=== PATIENT | female | born 1935 | race Caucasian/White ===

== ENCOUNTER 2016-11-23 14:21 | Emergency (ER) | payer OTHER, BC ==
[2016-11-23 14:56] VITALS: BP 112/59; PULSE 74; TEMP 98; BMI 28.3
--- NOTE | 2016-11-23 15:50 | PDOC ---
History of Present Illness - General Chief Complaint: Wound Stated Complaint: Wound Time Seen by Provider: 11/23/16 15:24 History Source: Patient Exam Limitations: No Limitations - History of Present Illness Initial Comments: 11/23/16 16:13 81 yr female with history of wound to her left lower leg for one month after cutting the back of her leg on a car door. Pt went to urgent care was on bactrim for 2 weeks for infection, however pt has some drainage from the wound. Severity: Yes: mild Location: reports: extremities (left posterior leg ) Past History - Past Medical History Allergies/Adverse Reactions: Allergies Allergy/AdvReac Type Severity Reaction Status Date / Time cephalexin monohydrate Allergy Intermediate Swelling Verified 12/03/16 11:06 [From Keflex] Home Medications: Ambulatory Orders Levothyroxine [Synthroid] 25 mcg PO DAILY 03/21/12 Metformin HCl [Glucophage] 500 mg PO DAILY 03/21/12 Metoprolol Tartrate [Lopressor] 50 mg PO BID 03/21/12 Anemia: No Cardiac Disorders: No CHF: No Dementia: No Diabetes: Yes HTN: Yes - Surgical History Cardiac Surgery: Yes ([facility]) - Psycho/Social/Smoking Cessation Hx Anxiety: No Suicidal Ideation: No Smoking Status: No Smoking History: Never smoked Have you smoked in the past 12 months: No Number of Cigarettes Smoked Daily: 0 Information on smoking cessation initiated: No Hx Alcohol Use: No Drug/Substance Use Hx: No Substance Use Type: None *Physical Exam - Vital Signs Last Vital Signs Temp Pulse Resp BP Pulse Ox 98 F 74 19 112/59 98 11/23/16 14:50 11/23/16 14:50 11/23/16 14:50 11/23/16 14:50 11/23/16 14:50 - Physical Exam General Appearance: Yes: Nourished, Appropriately Dressed HEENT: positive: EOMI, BARTOLO Neck: positive: Supple Respiratory/Chest: positive: Lungs Clear, Normal Breath Sounds Cardiovascular: positive: Regular Rhythm, Regular Rate Gastrointestinal/Abdominal: positive: Normal Bowel Sounds, Soft Musculoskeletal: positive: Normal Inspection Extremity: positive: Normal Capillary Refill, Normal Inspection, Normal Range of Motion, Other (left calf with area [id number] wound with scabbing, scant drainage , area surrounding with induration, no redness no streaking ) Integumentary: positive: Normal Color, Dry, Warm Neurologic: positive: Fully Oriented, Alert, Normal Mood/Affect, Normal Response , Motor Strength 5/5 Procedures - Incision and Drainage Betadine cleansed: Yes Volume(ml): 5 Attempts: 1 Dressing: Yes Progress: 11/23/16 18:16 scant amount of blood with sangenous drainage squeezed from the abscess , no active bleeding returned, indurated no pus returned wound culture obtained 11/23/16 20:47 11/23/16 21:05 ED Treatment Course - RADIOLOGY Radiology Studies Ordered: Category Date Time Status DUPLEX VASCUL US-1 LEG [US] Stat Ultrasound 11/23/16 15:37 Ordered - Consult/PCP Time Called: 18:25 Case discussed with personal care physician: Ced Wei Medical Decision Making - Medical Decision Making 11/23/16 18:17 cc: abscess to left lower leg secondary to wound infection will get US to r/o abscess vs blood clot/hematoma pt denies fever no chills 11/23/16 18:20 us reported will refer to general surgery for follow up 11/23/16 19:06 not here back from , I have paged as well no answer pt wants to leave pt will follow with her PMD or with the surgeons tomorrow as discussed, pt understands the follow up plan and strict follow up with surgeon this week OR her primary care 11/23/16 20:45 11/23/16 20:51 returned call case discussed and pt will call her office to follow up as needed. 11/23/16 21:05 *DC/Admit/Observation/Transfer Diagnosis at time of Disposition: Hematoma Leg wound, left Qualifiers: Encounter type: initial encounter Qualified Code(s): S81.802A - Unspecified open wound, left lower leg, initial encounter - Discharge Dispostion Disposition: HOME Condition at time of disposition: Good - Referrals Referrals: Abbey Newman MD [Primary Care Provider] - Ced Wei MD [Staff Physician] - Pj Oviedo MD [Staff Physician] - - Patient Instructions Additional Instructions: follow with either or call them tomorrow to make appointment say you were in the emergency room if you can not see the surgeon you must see your doctor tomorrow or Wednesday keep the wound dry do not remove the dressing take tylenol for pain as needed return to ER for any worsening symptoms
== END 2016-11-23 19:08 | disposition home or self-care (01) ==
LOC: JERFT 14:21
DX: S81.802A Unspecified open wound, left lower leg, initial encounter (principal); L03.116 Cellulitis of left lower limb; V48.4XXA Person boarding or alighting a car injured in noncollision transport accident, initial encounter; Y92.410 Unspecified street and highway as the place of occurrence of the external cause; Y93.89 Activity, other specified; Y99.9 Unspecified external cause status
CPT/HCPCS: 76882; 87070; 87186; 87205; 99281-25

== ENCOUNTER 2016-11-24 13:41 | Emergency (ER) | payer OTHER, BC ==
[2016-11-24 13:50] VITALS: BP 115/59; PULSE 75; BMI 28.3
--- NOTE | 2016-11-24 15:40 | PDOC ---
History of Present Illness - General Chief Complaint: Revisit,Wound Recheck Stated Complaint: DRESSING CHECK Time Seen by Provider: 11/24/16 15:18 - History of Present Illness Initial Comments: 11/24/16 15:35 CHIEF COMPLAINT: wound HISTORY OF PRESENT ILLNESS: 81 yr female returns to fast track for dressing check of wound to left lower leg. Patient has had this wound for one month after an injury to the back of her leg by a car door. Patient received Bactrim for 2 weeks for infection, however patient still was concerned about the drainage to the wound. Patient was referred to outpatient surgery yesterday and told to return for a dressing change today. She denies any pain, fever, chills, nausea, vomiting or worsening of the wound. Patient states she has an appointment with surgeon tomorrow at 1:45pm. PAST MEDICAL HISTORY: Denies past medical history FAMILY HISTORY: Denies SOCIAL HISTORY:Denies tobacco, alcohol, illicit drug use. SURGICAL HISTORY: Denies ALLERGIES: No known drug allergies REVIEW OF SYSTEMS General/Constitutional: Denies fever or chills. Gastrointestinal: Denies nausea, vomiting, diarrhea. Genitourinary: Denies dysuria, frequency, or change in urination. Musculoskeletal: Denies joint or muscle swelling or pain. Skin: "I was told to have the dressing change today on this wound on my leg." PHYSICAL EXAM General Appearance: Well-appearing, appropriately dressed. No apparent distress. HEENT: EOMI, PERRLA. Respiratory/Chest: Lungs CTAB. Cardiovascular: RRR. S1, S2. Vascular Pulses: Dorsalis-Pedis (R): 2+, Dorsalis-Pedis (L): 2+ Musculoskeletal/Extremities: Draining open abscess to left calf. No erythema, warmth, or swelling to wound site. Normal inspection. FROM of all extremities, normal capillary refill. Pelvis Stable. No CVA tenderness. No tenderness to extremities, pedal edema, swelling, erythema or deformity. Integumentary: Appropriate color, dry, warm. 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 Fully oriented, alert. Appropriate mood/affect. Motor strength 5/5. No appreciable EOM palsy, facial droop or sensory deficit. Past History - Past Medical History Allergies/Adverse Reactions: Allergies Allergy/AdvReac Type Severity Reaction Status Date / Time No Known Allergies Allergy Verified 11/24/16 13:51 Home Medications: Ambulatory Orders Amlodipine/Valsartan [Exforge 5-320 mg Tablet] 1 each PO DAILY 03/21/12 Esomeprazole Mag Trihydrate [Nexium] 40 mg PO DAILY PRN 03/21/12 Levothyroxine [Synthroid] 25 mcg PO DAILY 03/21/12 Metformin HCl [Glucophage] 500 mg PO DAILY 03/21/12 Metoprolol Tartrate [Lopressor] 50 mg PO BID 03/21/12 Anemia: No Cardiac Disorders: No CHF: No Dementia: No Diabetes: Yes HTN: Yes - Surgical History Cardiac Surgery: Yes ([facility]) - Psycho/Social/Smoking Cessation Hx Anxiety: No Suicidal Ideation: No Smoking Status: No Smoking History: Never smoked Have you smoked in the past 12 months: No Number of Cigarettes Smoked Daily: 0 Information on smoking cessation initiated: No Hx Alcohol Use: No Drug/Substance Use Hx: No Substance Use Type: None *Physical Exam - Vital Signs Last Vital Signs Temp Pulse Resp BP Pulse Ox 75 18 115/59 98 11/24/16 13:46 11/24/16 13:46 11/24/16 13:46 11/24/16 13:46 Medical Decision Making - Medical Decision Making 11/24/16 15:39 81 yr female returns to fast track for dressing change to wound to left lower leg. -Dressing changed Patient states she will see surgeon tomorrow at 1:45 pm. *DC/Admit/Observation/Transfer Diagnosis at time of Disposition: Dressing change - Discharge Dispostion Disposition: HOME Condition at time of disposition: Stable Admit: No - Patient Instructions Printed Discharge Instructions: DI for Wound Infection Additional Instructions: Please follow up with Dr. Wei as planned tomorrow. If you experience pain swelling, redness, or warmth to the wound, or you develop fever, nausea, vomiting, diarrhea, chills, or any new or worsening symptoms, please return to the ER.
== END 2016-11-24 16:44 | disposition home or self-care (01) ==
LOC: JERFT 13:41
DX: Z48.01 Encounter for change or removal of surgical wound dressing (principal); S81.802D Unspecified open wound, left lower leg, subsequent encounter; V48.4XXD Person boarding or alighting a car injured in noncollision transport accident, subsequent encounter
CPT/HCPCS: 99281-25

== ENCOUNTER 2017-09-28 19:10 | Observation (INO) | payer OTHER, BC ==
--- NOTE | 2017-09-28 19:20 | PDOC ---
Rapid Medical Evaluation Chief Complaint: Chest Pain Time Seen by Provider: 09/28/17 19:17 Medical Evaluation: Allergies Allergy/AdvReac Type Severity Reaction Status Date / Time cephalexin monohydrate Allergy Intermediate Swelling Verified 09/28/17 19:16 [From Keflex] 09/28/17 19:18 Chest pain since yesterday. Currently rates the pain a 4/10, occasionally the pain takes her breath away. Pain started when she stood up. Pain located on the L side Exam:Ambulatory, irregularly irregular rate and rhythm. CTAB Orders: Labs, EKG, CXR Pt. to proceed to main ED for further eval
--- NOTE | 2017-09-28 21:53 | PDOC ---
History of Present Illness - General History Source: Patient Exam Limitations: No Limitations <Catherine Gomez - Last Filed: 09/29/17 00:27> - History of Present Illness Initial Comments: Patient is an 82 F, with PMHx of HTN, NE, CVA, TIA, Paroxysmal a-fib (dx in 2016), on Eliquis (5mg 2x/day) who presents with chest pain since yesterday morning. Patient states that she woke up with chest pain yesterday morning. She describes her pain as left sided, intermittent, rates 3/10, does not radiate. She states it feels like a muscle strain and states that it takes her breath away but doesnt describe it as being short of breath. She denies recent heavy lifting. Denies recent travel. She denies recent dizziness or lightheadedness. PCP: Kayley Newman. 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 Allergies: Keflex Social Hx: lives alone, social EtOH, quit smoking (>30 years ago) <Kathy Garza - Last Filed: 09/29/17 00:55> - General Chief Complaint: Chest Pain Stated Complaint: CHEST PAIN Time Seen by Provider: 09/28/17 19:17 Past History - Past Medical History Anemia: No Cardiac Disorders: Yes (A-Fib, CAD) COPD: No CHF: No Dementia: No Diabetes: Yes HTN: Yes Hypercholesterolemia: Yes Thyroid Disease: Yes - Surgical History Cardiac Surgery: Yes ([facility]) - Suicide/Smoking/Psychosocial Hx Smoking Status: No Smoking History: Never smoked Have you smoked in the past 12 months: No Number of Cigarettes Smoked Daily: 0 Information on smoking cessation initiated: No Hx Alcohol Use: No Drug/Substance Use Hx: No Substance Use Type: None <Catherine Gomez - Last Filed: 09/29/17 00:27> <Kathy Garza - Last Filed: 09/29/17 00:55> - Past Medical History Allergies/Adverse Reactions: Allergies Allergy/AdvReac Type Severity Reaction Status Date / Time cephalexin monohydrate Allergy Intermediate Swelling Verified 09/28/17 19:16 [From Keflex] Home Medications: Ambulatory Orders Levothyroxine [Synthroid] 25 mcg PO DAILY 03/21/12 Metoprolol Tartrate [Lopressor] 50 mg PO HS 03/21/12 metFORMIN HCL [Glucophage] 500 mg PO DAILY 03/21/12 Metoprolol Tartrate 75 mg PO AM 09/28/17 Review of Systems - Review of Systems Comments:: GENERAL/CONSTITUTIONAL: No: fever, chills, weakness, loss of appetite. HEAD, EYES, EARS, NOSE AND THROAT: No: change in vision, ear pain, discharge, sore throat, throat swelling. CARDIOVASCULAR: +chest pain, no lightheadedness, palpitations, syncope RESPIRATORY: No: cough, shortness of breath, wheezing, hemoptysis, stridor. GASTROINTESTINAL: No: nausea, vomiting, abdominal cramping, diarrhea, rectal bleeding, constipation. GENITOURINARY: No: dysuria, hematuria, frequency, urgency, flank pain. MUSCULOSKELETAL: No: back pain, neck pain, joint pain, muscle swelling or pain SKIN: No: lesions, pallor, rash or easy bruising. NEUROLOGIC: No: headache, vertigo, paresthesias, weakness ENDOCRINE: No: unexplained weight gain or loss HEMATOLOGIC/LYMPHATIC: No: anemia, easy bleeding, swelling nodes 09/29/17 00:10 <Kathy Garza - Last Filed: 09/29/17 00:55> *Physical Exam - Vital Signs Last Vital Signs Temp Pulse Resp BP Pulse Ox 98.6 F 93 H 18 148/97 100 09/28/17 19:17 09/28/17 19:17 09/28/17 19:17 09/28/17 19:17 09/28/17 19:17 <Catherine Gomez - Last Filed: 09/29/17 00:27> - Vital Signs Last Vital Signs Temp Pulse Resp BP Pulse Ox 98.6 F 93 H 18 148/97 100 09/28/17 19:17 09/28/17 19:17 09/28/17 19:17 09/28/17 19:17 09/28/17 19:17 - Physical Exam Comments: 09/29/17 00:09 GENERAL: The patient is in no acute distress. HEAD: Normal with no signs of trauma. EYES: PERRLA, EOMI, sclera anicteric, conjunctiva clear. ENT: Ears normal, nares patent, oropharynx clear without exudates. Moist mucous membranes. NECK: Normal range of motion, supple without lymphadenopathy, JVD, or masses. LUNGS: Breath sounds equal, clear to auscultation bilaterally. No wheezes, and no crackles. HEART:Irregularly irregular rate and rhythm, no murmur, rub or gallop. ABDOMEN: Soft, nontender, normoactive bowel sounds. No guarding, no rebound. EXTREMITIES: Normal range of motion, no edema. No clubbing or cyanosis. No erythema, or tenderness. NEUROLOGICAL: Cranial nerves II through XII grossly intact. Normal speech. No focal neurological deficits. MUSCULOSKELETAL: Back nontender to palpation, no CVA tenderness SKIN: Warm, Dry, normal turgor, no rashes or lesions noted. <Kathy Garza - Last Filed: 09/29/17 00:55> ED Treatment Course - LABORATORY CBC & Chemistry Diagram: 09/28/17 22:17 09/28/17 22:17 <Catherine Gomez - Last Filed: 09/29/17 00:27> - LABORATORY CBC & Chemistry Diagram: 09/28/17 22:17 09/28/17 22:17 - ADDITIONAL ORDERS Additional order review: Laboratory Results 09/28/17 09/28/17 09/28/17 22:17 22:17 22:17 PT with INR 17.70 H INR 1.57 H Sodium 140 Potassium 4.5 Chloride 105 Carbon Dioxide 29 Anion Gap 6 L BUN 14 Creatinine 0.8 Creat Clearance w eGFR > 60 Random Glucose 103 Calcium 9.2 Magnesium 2.2 Total Bilirubin 1.2 H AST 24 ALT 20 Alkaline Phosphatase 131 H Creatine Kinase 23 L Troponin I < 0.02 Total Protein 7.1 Albumin 4.2 09/28/17 22:17 RBC 4.01 MCV 94.9 MCHC 32.4 RDW 14.1 MPV 11.3 H Neutrophils % No Result Required. Lymphocytes % No Result Required. <Kathy Garza - Last Filed: 09/29/17 00:55> Medical Decision Making - Medical Decision Making 09/28/17 23:24 Miscarriages and 82-year-old female with a history of hypertension, possible hyperlipidemia, coronary artery disease status post CABG in 2013. She presents emergency department with a complaint of left-sided chest pain. She describes a left sided chest pain as a muscle strain, rates it/10, no radiation. No diaphoresis, no shortness of breath although she does state when she has her chest pain it makes her need to catch her breath. No fever, chills. No recent travel. No lower extremity edema. Patient symptoms began yesterday, when she woke in the morning with this chest pain. She cannot remember any excessive exertion which cause her pain. On examination: Heart is regular rate and rhythm, no murmurs appreciated Lungs are clear to auscultation Normal external edema No abdominal tenderness. No chest wall tenderness to palpation. Patient is well-appearing overall. She is awake, alert, oriented. She answers all questions appropriately. Will do: Labs EKG Chest x-ray EKG: Atrial fibrillation, rate of 84 bpm, left axis deviation, right bundle-branch block, no ST elevation or depression, T waves upright, T wave inversion in lead III, aVF Awaiting chest x-ray. Laboratory Tests 09/28/17 09/28/17 09/28/17 22:17 22:17 22:17 WBC 4.1 Hgb 12.3 Hct 38.0 Plt Count 85 L Neutrophils % (Manual) 43.0 Band Neutrophils % 0.0 Monocytes % (Manual) 20 H Sodium 140 Potassium 4.5 Chloride 105 Carbon Dioxide 29 BUN 14 Creatinine 0.8 Random Glucose 103 Creatine Kinase 23 L Troponin I < 0.02 Patient's EKG demonstrates new onset atrial fibrillation. CHAD2 VASC - 6 (age, female, prior TIA per chart review, HTN) Will admit Clinical Impression: chest pain, initial presentation New onset Afib, initial presentation <Catherine Gomez - Last Filed: 09/29/17 00:27> *DC/Admit/Observation/Transfer - Discharge Dispostion Decision to Admit order: Yes <Catherine Gomez - Last Filed: 09/29/17 00:27> - Attestations Scribe Attestion: 09/29/17 00:12 Documentation prepared by Kathy Garza, acting as medical science liaison for Catherine Gomez MD. <Kathy Garza - Last Filed: 09/29/17 00:55> Diagnosis at time of Disposition: Chest pain Qualifiers: Chest pain type: unspecified Qualified Code(s): R07.9 - Chest pain, unspecified - Discharge Dispostion Disposition: HOME Condition at time of disposition: Stable - Referrals Referrals: Marlena Newman [Primary Care Provider] - - Patient Instructions - Post Discharge Activity
[2017-09-28 22:30] LABS: HEMOGLOBIN 12.3 GM/dL (10.7-15.3); MCH 30.7 pg (25.7-33.7); MCHC 32.4 g/dl (32.0-36.0); MEAN CELL VOLUME 94.9 fl (80-96); MEAN PLT VOLUME 11.3 fl (7.5-11.1); PLATELET COUNT 85 K/MM3 (134-434); RBC 4.01 M/mm3 (3.60-5.2); RDW 14.1 % (11.6-15.6); WHITE BLOOD COUNT 4.1 K/mm3 (4.0-10.0)
[2017-09-28 22:59] LABS: ALBUMIN 4.2 g/dl (3.4-5.0); ALK PHOS 131 U/L (45-117); ANION GAP 6 (8-16); BILIRUBIN,TOTAL 1.2 mg/dL (0.2-1.0); BLOOD UREA NITROGEN 14 mg/dL (7-18); CALCIUM 9.2 mg/dL (8.5-10.1); CHLORIDE 105 mmol/L (98-107); CO2 29 mmol/L (21-32); CREATININE 0.8 mg/dL (0.55-1.02); GLUCOSE,RANDOM 103 mg/dL (74-106); MAGNESIUM 2.2 mg/dL (1.8-2.4); POTASSIUM 4.5 mmol/L (3.5-5.1); SGOT/AST 24 U/L (15-37); SGPT/ALT 20 U/L (12-78); SODIUM 140 mmol/L (136-145); TOT PROT 7.1 g/dl (6.4-8.2)
[2017-09-28 23:10] LABS: PLATELET ESTIMATE DECREASED
[2017-09-28 23:37] LABS: INR 1.57 (0.82-1.09); PROTHROMBIN TIME (PATIENT) 17.7 SEC (9.7-13.0)
--- NOTE | 2017-09-29 00:16 | HP ---
CHIEF COMPLAINT: chest pain Automatic Packer Operator: Dr. Suarez PCP: Billie dAen HISTORY OF PRESENT ILLNESS: 82 yr old woman with HTN, pre-diabetes, CAD, hx of UTI's presents with left sided chest pain since morning on 09/28, intermittent nonpositional nonradiating lasting few seconds, no alleviating/exacerbating factors, 3/10 feels like an "annoying pain." spoke to her it risk analyst who recommended coming in for evaluation. when it comes on it lasts 1 sec, is sharp and she feels like it affects her breathing. 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 Social History: Smoking: Alcohol: Drugs: Family History: Allergies cephalexin monohydrate [From Keflex] Allergy (Intermediate, Verified 09/28/17 19 :16) Swelling HOME MEDICATIONS: Home Medications Medication Instructions Recorded Levothyroxine [Synthroid] 25 mcg PO DAILY 03/21/12 Metoprolol Tartrate [Lopressor] 50 mg PO HS 03/21/12 metFORMIN HCL [Glucophage] 500 mg PO DAILY 03/21/12 Metoprolol Tartrate 75 mg PO AM 09/28/17 REVIEW OF SYSTEMS CONSTITUTIONAL: Absent: fever, chills, diaphoresis, generalized weakness, malaise, loss of appetite, weight change HEENT: Absent: rhinorrhea, nasal congestion, throat pain, throat swelling, difficulty swallowing, mouth swelling, ear pain, eye pain, visual changes CARDIOVASCULAR: Absent: chest pain, syncope, palpitations, irregular heart rate, lightheadedness , peripheral edema RESPIRATORY: Absent: cough, shortness of breath, dyspnea with exertion, orthopnea, wheezing, stridor, hemoptysis GASTROINTESTINAL: Absent: abdominal pain, abdominal distension, nausea, vomiting, diarrhea, constipation, melena, hematochezia GENITOURINARY: Absent: dysuria, frequency, urgency, hesitancy, hematuria, flank pain, genital pain MUSCULOSKELETAL: Absent: myalgia, arthralgia, joint swelling, back pain, neck pain SKIN: Absent: rash, itching, pallor HEMATOLOGIC/IMMUNOLOGIC: Absent: easy bleeding, easy bruising, lymphadenopathy, frequent infections ENDOCRINE: Absent: unexplained weight gain, unexplained weight loss, heat intolerance, cold intolerance NEUROLOGIC: Absent: headache, focal weakness or paresthesias, dizziness, unsteady gait, seizure, mental status changes, bladder or bowel incontinence PSYCHIATRIC: Absent: anxiety, depression, suicidal or homicidal ideation, hallucinations. PHYSICAL EXAMINATION Vital Signs - 24 hr 09/28/17 19:17 Temperature 98.6 F Pulse Rate 93 H Respiratory 18 Rate Blood Pressure 148/97 O2 Sat by Pulse 100 Oximetry (%) GENERAL: Awake, alert, and fully oriented, in no acute distress. HEAD: Normal with no signs of trauma. EYES: Pupils equal, round and reactive to light, extraocular movements intact, sclera anicteric, conjunctiva clear. No lid lag. EARS, NOSE, THROAT: Ears normal, nares patent, oropharynx clear without exudates. Moist mucous membranes. NECK: Normal range of motion, supple without lymphadenopathy, JVD, or masses. LUNGS: Breath sounds equal, clear to auscultation bilaterally. No wheezes, and no crackles. No accessory muscle use. CHEST: mild TTP in left lateral chest above breast. well-healed sternotomy scar HEART: irreg irreg, normal S1 and S2 without murmur, rub or gallop. ABDOMEN: Soft, nontender, not distended, normoactive bowel sounds, no guarding, no rebound, no masses. No hepatomegaly or splenomegaly. MUSCULOSKELETAL: within Normal range of motion at all joints. No bony deformities or tenderness. No CVA tenderness. UPPER EXTREMITIES: 2+ radial pulses, warm, well-perfused. No cyanosis. No clubbing. No peripheral edema. LOWER EXTREMITIES: 2+ dp pulses, warm, well-perfused. No calf tenderness. No peripheral edema. NEUROLOGICAL: Cranial nerves II-XII intact. Normal speech. Normal gait with cane. 4/5 in all muscle groups UE and LE. DTRs wnl, facial symmetry PSYCHIATRIC: Cooperative. Good eye contact. Appropriate mood and affect. SKIN: Warm, dry, normal turgor, no rashes or lesions noted, normal capillary refill. Laboratory Results - last 24 hr 09/28/17 09/28/17 09/28/17 22:17 22:17 22:17 WBC 4.1 RBC 4.01 Hgb 12.3 Hct 38.0 MCV 94.9 MCH 30.7 MCHC 32.4 RDW 14.1 Plt Count 85 L MPV 11.3 H Neutrophils % No Result Required. Neutrophils % (Manual) 43.0 Band Neutrophils % 0.0 Lymphocytes % No Result Required. Lymphocytes % (Manual) 35.0 Monocytes % (Manual) 20 H Eosinophils % (Manual) 0.0 Basophils % (Manual) 0.0 Nucleated RBC % 0 Platelet Estimate Decreased Platelet Comment No clumping noted PT with INR 17.70 H INR 1.57 H Sodium 140 Potassium 4.5 Chloride 105 Carbon Dioxide 29 Anion Gap 6 L BUN 14 Creatinine 0.8 Creat Clearance w eGFR > 60 Random Glucose 103 Calcium 9.2 Magnesium 2.2 Total Bilirubin 1.2 H AST 24 ALT 20 Alkaline Phosphatase 131 H Creatine Kinase Troponin I Total Protein 7.1 Albumin 4.2 09/28/17 22:17 WBC RBC Hgb Hct MCV MCH MCHC RDW Plt Count MPV Neutrophils % Neutrophils % (Manual) Band Neutrophils % Lymphocytes % Lymphocytes % (Manual) Monocytes % (Manual) Eosinophils % (Manual) Basophils % (Manual) Nucleated RBC % Platelet Estimate Platelet Comment PT with INR INR Sodium Potassium Chloride Carbon Dioxide Anion Gap BUN Creatinine Creat Clearance w eGFR Random Glucose Calcium Magnesium Total Bilirubin AST ALT Alkaline Phosphatase Creatine Kinase 23 L Troponin I < 0.02 Total Protein Albumin Active Medications Apixaban (Eliquis -) 5 mg PO BID AMANDA Atorvastatin Calcium (Lipitor -) 10 mg PO HS AMANDA Levothyroxine Sodium (Synthroid -) 25 mcg PO DAILY@0700 [facility] Metoprolol Tartrate (Lopressor -) 50 mg PO HS [facility] Metoprolol Tartrate 50 mg/ (Metoprolol Tartrate 25 mg) 75 mg PO AM [facility] ASSESSMENT/PLAN: 82 yr old woman with HTN, predm, CABG, paroxysmal afib on eliquie presented with atypical chest pain placed on tele obs to r/o ACS. #Chest pain r.o acs - repeat EKG - trend trops - check lipid profile, tsh, A1c - cardiology consult - continue eliquis 5mg po BID - echo #Afib - rate controlled - eliquis 5mg po bid - lopressor 50mg po HS - lopressor 75mg po AM #Hypothyroid - synthryoid 25mcg po daily #CAD - lipitor 10mgpo HS #DVT - on eliquis #Diet: low sodium, check a1c if pt needs diabetic diet #offered HIV testing, pt declined. #Code status - pt did not want to discuss at this time, did not want to name a hcp. not prepared for "this conversation" at this time. recommended to speak to her PCP as outpatient Visit type - Emergency Visit Emergency Visit: Yes ED Registration Date: 09/29/17 Care time: The patient presented to the Emergency Department on the above date and was hospitalized for further evaluation of their emergent condition. - New Patient This patient is new to me today: Yes Date on this admission: 09/29/17 - Critical Care Critical Care patient: No Hospitalist Screening - Colonoscopy Questionnaire Colonoscopy Questionnaire: Colonoscopy Questionnaire - Patient: 50 - 75 years old and never had a screening colonoscopy: Unknown History of colon or rectal polyps, or CA: Unknown History of IBD, Crohn's disease or UC: Unknown History of abdominal radiation therapy as a child: Unknown - Relative: 1 with colon or rectal CA, or polyps at age 60 or younger: Unknown Colon or rectal CA diagnosed at age 45 or younger: Unknown Multiple relatives with colon or rectal CA: Unknown - Outcome: Screening Result: Negative Screen
--- NOTE | 2017-09-29 01:01 | PN ---
Teaching Attending Note Name of Resident: Cony Bradshaw ATTENDING PHYSICIAN STATEMENT I saw and evaluated the patient. I reviewed the resident's note and discussed the case with the resident. I agree with the resident's findings and plan as documented. SUBJECTIVE: Patient is an 82 year old woman, with PMHx of HTN, PA, CVA, TIA, CABG, Paroxysmal a-fib (dx in 2016), on Eliquis (5mg 2x/day) who presents with chest pain since yesterday morning. Patient states that she woke up with chest pain yesterday morning. She describes her pain as left sided, intermittent, rates 3/ 10, does not radiate. She states it feels like a muscle strain and states that it takes her breath away but doesnt describe it as being short of breath. OBJECTIVE: Alert and in no acute distress. Vital Signs Period Temp Pulse Resp BP Sys/Littlejohn Pulse Ox Last 24 Hr 98.6 F 93 18 148/97 100 HEENT: No Jaundice, eye redness or discharge, PERRLA, EOMI. Normocephalic, atraumatic. External ears are normal and hearing is grossly intact. No nasal discharge. Neck: Supple, nontender. No palpable adenopathy or thyromegaly. No JVD Chest: Good effort. Point tenderness left chest wall. Clear to auscultation. Heart: Regular. No S3, rub or murmur Abdomen: Not distended, soft, nontender and no HSM. No rebound or guarding. Normoactive bowel sounds. Ext: Peripheral pulses intact. No leg edema. Skin: Warm and dry. No petechiae, rash or ecchymosis. Neuro: Alert. Oriented x3. CN 2-12 grossly intact. Sensation grossly intact in all four extremities and DTR are symmetric. Slow gait. Current Medications Generic Name Dose Route Start Last Admin Trade Name Freq PRN Reason Stop Dose Admin Apixaban 5 mg 09/29/17 10:00 Eliquis - PO BID AMANDA Levothyroxine Sodium 25 mcg 09/29/17 10:00 Synthroid - PO DAILY AMANDA Metoprolol Tartrate 50 mg 09/29/17 22:00 Lopressor - PO HS AMANDA Non-Formulary Medication 75 mg 09/29/17 07:00 Metoprolol Tartrate [Metoprolol Tartrate] PO AM [facility] Home Medications Medication Instructions Recorded Levothyroxine [Synthroid] 25 mcg PO DAILY 03/21/12 Metoprolol Tartrate [Lopressor] 50 mg PO HS 03/21/12 metFORMIN HCL [Glucophage] 500 mg PO DAILY 03/21/12 Metoprolol Tartrate 75 mg PO AM 09/28/17 Abnormal Lab Results 09/28/17 09/28/17 09/28/17 22:17 22:17 22:17 Plt Count 85 L MPV 11.3 H Monocytes % (Manual) 20 H PT with INR 17.70 H INR 1.57 H Anion Gap 6 L Total Bilirubin 1.2 H Alkaline Phosphatase 131 H Creatine Kinase 09/28/17 22:17 Plt Count MPV Monocytes % (Manual) PT with INR INR Anion Gap Total Bilirubin Alkaline Phosphatase Creatine Kinase 23 L ASSESSMENT AND PLAN: 1. Atypical chestpain - Patient will be admitted as an observation case to telemetry and do serial EKGs and troponins to rule out ACS. Thusfar, no evidnece of acute PA. Monitor mild elevation in bilirubin. Elevated INR liekly due to Eliquis. 2. Afib - rate controlled and on Eliquis. 3. Low platelets - chronic issue that is being investigated by PCP. May need bone scan to rule out any bone lesion in view of recent rib cage pain. Avoid heparins. 4. DVT prophylaxis - On Eliquis 5. Advance directives - Full code
[2017-09-29] MEDS ORDERED: APIXABAN 5 MG TABLET PO STA (01:19)
[2017-09-29 01:45] LABS: URINE APPEARANCE CLEAR; URINE BILIRUBIN NEGATIVE (<2.0 mg/dL); URINE COLOR YELLOW; URINE GLUCOSE (UA) NEGATIVE (NEGATIVE); URINE KETONE NEGATIVE (NEGATIVE); URINE LEUK ESTERASE NEGATIVE (NEGATIVE); URINE NITRITE NEGATIVE (NEGATIVE); URINE PROTEIN NEGATIVE (NEGATIVE); URINE UROBILINOGEN NEGATIVE mg/dL (0.2-1.0)
[2017-09-29 04:26] LABS: BASO % 0.5 % (0-2.0); EOS % 0.6 % (0-4.5); HEMATOCRIT 39.4 % (32.4-45.2); HEMOGLOBIN 12.9 GM/dL (10.7-15.3); LYMPH % 36.3 % (8-40); MCH 31.1 pg (25.7-33.7); MCHC 32.7 g/dl (32.0-36.0); MEAN CELL VOLUME 95.2 fl (80-96); MEAN PLT VOLUME 11.6 fl (7.5-11.1); MONO % 31.3 % (3.8-10.2); NEUT % 31.3 % (42.8-82.8); PLATELET COUNT 80 K/MM3 (134-434); RBC 4.14 M/mm3 (3.60-5.2); RDW 14.5 % (11.6-15.6); WHITE BLOOD COUNT 4.4 K/mm3 (4.0-10.0)
[2017-09-29 05:06] LABS: ALBUMIN 4.3 g/dl (3.4-5.0); ANION GAP 7 (8-16); BILIRUBIN,DIRECT 0.5 mg/dL (0.0-0.2); BILIRUBIN,TOTAL 1.3 mg/dL (0.2-1.0); BLOOD UREA NITROGEN 13 mg/dL (7-18); CALCIUM 9.2 mg/dL (8.5-10.1); CHLORIDE 107 mmol/L (98-107); CO2 26 mmol/L (21-32); CREATININE 0.8 mg/dL (0.55-1.02); GLUCOSE,RANDOM 104 mg/dL (74-106); PHOSPHOROUS 3.6 mg/dL (2.5-4.9); POTASSIUM 3.9 mmol/L (3.5-5.1); SODIUM 140 mmol/L (136-145); TOT PROT 7.3 g/dl (6.4-8.2)
[2017-09-29 05:08] LABS: CHOLESTEROL 111 mg/dL (50-200); HDL CHOLESTEROL 52 mg/dL (40-60); TRIGLYCERIDES 85 mg/dL (35-160)
[2017-09-29] MEDS ORDERED: LEVOTHYROXINE NA 25 MCG TABLET (FP) PO SCH (07:00)
[2017-09-29] MEDS ORDERED: PATIENT'S OWN MEDICATION (NON-FORMULARY) (Metoprolol Tartrate [Metoprolol Tartrate] 75 MG) PO SCH (07:00)
[2017-09-29] MEDS ORDERED: METOPROLOL TARTRATE 50 MG, METOPROLOL TARTRATE 25 MG PO SCH (07:00)
[2017-09-29] MEDS ORDERED: METOPROLOL TARTRATE 25 MG TABLET (FP) ONE (07:21)
[2017-09-29] MEDS ORDERED: METOPROLOL TARTRATE 50 MG TABLET (FP) ONE (07:21)
[2017-09-29] MEDS ORDERED: LEVOTHYROXINE NA 25 MCG TABLET (FP) ONE (07:22)
[2017-09-29 09:29] VITALS: BMI 25.8
--- NOTE | 2017-09-29 09:48 | EKG ---
Test Reason : Blood Pressure : / mmHG Vent. Rate : 084 BPM Atrial Rate : 105 BPM P-R Int : 000 ms QRS Dur : 092 ms QT Int : 370 ms P-R-T Axes : 000 -48 -22 degrees QTc Int : 437 ms ATRIAL FIBRILLATION PULMONARY DISEASE PATTERN INCOMPLETE RIGHT BUNDLE BRANCH BLOCK LEFT ANTERIOR FASCICULAR BLOCK NONSPECIFIC ST ABNORMALITY ABNORMAL ECG WHEN COMPARED WITH ECG OF 21-MAR-2012 16:13, ATRIAL FIBRILLATION HAS REPLACED SINUS RHYTHM VENT. RATE HAS INCREASED BY 30 BPM LEFT ANTERIOR FASCICULAR BLOCK IS NOW PRESENT INCOMPLETE RIGHT BUNDLE BRANCH BLOCK IS NOW PRESENT Confirmed by SHAGGY MELÉNDEZ, GUSTAVO ([id number]) on 09/29/2017 9:48:28 AM Referred By: Confirmed By:GUSTAVO COON MD
[2017-09-29] MEDS ORDERED: APIXABAN 5 MG TABLET PO SCH (10:00)
--- NOTE | 2017-09-29 15:33 | DS ---
Physical Examination Vital Signs: Vital Signs Temperature 98 F 09/29/17 14:32 Pulse Rate 90 09/29/17 14:32 Respiratory Rate 18 09/29/17 14:32 Blood Pressure 122/72 09/29/17 14:32 O2 Sat by Pulse Oximetry (%) 97 09/29/17 14:34 Labs: CBC, BMP 09/29/17 04:04 09/29/17 04:04 Discharge Summary Reason For Visit: CHEST PAIN Current Active Problems Chest pain (Acute) Hospital Course: Discussed with Dr. Taylor who reviewed the ECHO and states the patient is ok for discharge. Condition: Improved - Instructions Diet, Activity, Other Instructions: Please return to the ED with new, persistent, or worsening symptoms. Please follow-up with your primary care provider as described. Please follow-up with your special delivery worker (Dr. Osorio) within 2-3 days. Please bring a copy of your ECHO report there so they can evaluate it and compare it to your previous ECHOs. Referrals: Marlena Newman [Primary Care Provider] - (Please follow-up with your primary care provider within 2-3 days to schedule an appointment to have your TSH checked in 4-6 weeks. You TSH (thyroid stimulating hormone) was elevated here, but your T4 was normal. There are NO adjustments that need to be made to your Synthroid dose at this time.) Disposition: HOME - Home Medications Comprehensive Discharge Medication List: Ambulatory Orders Levothyroxine [Synthroid -] 50 mcg PO DAILY 03/21/12 Metoprolol Tartrate [Lopressor -] 50 mg PO HS 03/21/12 metFORMIN HCL [Glucophage -] 500 mg PO DAILY 03/21/12 Metoprolol Tartrate 75 mg PO AM 09/28/17 Apixaban [Eliquis] 5 mg PO BID 09/29/17 Atorvastatin Calcium 10 mg PO HS 09/29/17
[2017-09-29 15:56] VITALS: BP 116/65; PULSE 16; TEMP 98.1
--- NOTE | 2017-09-29 16:15 | CON.CARD ---
Consult Consult Specialty:: Cardiology Referred by:: Hospitalist Reason for Consultation:: Chest pain - History of Present Illness Chief Complaint: Chest pain History of Present Illness: 82 year old woman h/o HTN, HLD, DMII, CAD prior [place] s/p CABG 2012, Afib on eliquis, h/o CVA, TIA, admitted with L sided chest pain. Pt seen and examined today in nad. Pt states that approx 1 week ago she strained a muscle on the R side of her chest when reaching across the car to open the car door. She states that pain resolved but now she felt the same pain on the L side of her chest. states it is exacerbated by certain movements of her L arm and change in position as well as palpation of her chest. CUrrently no chest pain. No relationship to exertion. No sob. no palpitations. no pnd, orthopnea, or LE edema. - History Source History Provided By: Patient, Medical Record Limitations to Obtaining History: No Limitations - Past Medical History Cardio/Vascular: Yes: AFIB, CAD, HTN, Hyperlipdemia - Alcohol/Substance Use Hx Alcohol Use: No - Smoking History Smoking history: Former smoker Have you smoked in the past 12 months: No Aproximately how many cigarettes per day: 0 - Social History ADL: Independent History of Recent Travel: No Home Medications - Allergies Allergies/Adverse Reactions: Allergies Allergy/AdvReac Type Severity Reaction Status Date / Time cephalexin monohydrate Allergy Intermediate Swelling Verified 09/28/17 19:16 [From Keflex] - Home Medications Home Medications: Ambulatory Orders Levothyroxine [Synthroid -] 50 mcg PO DAILY 03/21/12 Metoprolol Tartrate [Lopressor -] 50 mg PO HS 03/21/12 metFORMIN HCL [Glucophage -] 500 mg PO DAILY 03/21/12 Metoprolol Tartrate 75 mg PO AM 09/28/17 Apixaban [Eliquis] 5 mg PO BID 09/29/17 Atorvastatin Calcium 10 mg PO HS 09/29/17 Family Disease History - Family Disease History Family History: Denies Review of Systems - Review of Systems Constitutional: denies: No Symptoms, Chills, Diaphoresis, Fever, Lethargy, Loss of Appetite, Malaise, Night Sweats, Unintentional Wgt. Loss, Weakness, Other Eyes: denies: No Symptoms, Blind Spots, Blurred Vision, Double Vision, Eye Pain , Floaters, Photophobia, Recent Change in Vision, Other HENT: denies: No Symptoms, Difficult Swallowing, Ear Discharge, Ear Pain, Epistaxis, Gingival Bleeding, Hearing Loss, Mouth Swelling, Nasal Congestion, Ocular Prosthesis, Throat Pain, Toothache, Ringing in Ears, Other Neck: denies: No Symptoms, Decreased ROM, Lumps, Pain on Movement, Stiffness, Swollen Glands, Tenderness, Other Cardiovascular: reports: Chest Pain. denies: No Symptoms, Edema, Palpitations, Shortness of Breath, Other Respiratory: reports: Cough. denies: No Symptoms, Exercise Intolerance, Hemoptysis, Orthopnea, PND, Snoring, SOB, SOB on Exertion, Wheezing, Other Gastrointestinal: denies: No Symptoms, Abdominal Pain, Bloating, Constipation, Diarrhea, Dysphagia, Indigestion, Melena, Nausea, Rectal Bleeding, Vomiting, Vomiting Blood, Other Genitourinary: denies: No Symptoms, Burning, Discharge, Dysuria, Flank Pain, Frequency, Hematuria, Incontinence, Lesions, Menses, Pain, Testicular Mass, Testicular Pain, Testicular Swelling, Urgency, Vaginal Bleeding, Other Breasts: denies: No Symptoms Reported, See HPI, Breast Implants, Discharge from Nipple, Lumps, Pain, Skin Changes, Other Musculoskeletal: denies: No Symptoms, Back Pain, Crepitus, Decreased ROM, Extremity Pain, Joint Pain, Joint Swelling, Muscle Pain, Muscle Cramps, Muscle Weakness, Other Integumentary: denies: No Symptoms, Blister, Bruising, Change in Color, Eczema, Erythema, Incision, Lesions, Lump, Pallor, Pruritis, Rash, Wound, Other Neurological: denies: No Symptoms, Change in LOC, Change in Speech, Confusion, Dizziness, Headache, Incoordination, Numbness, Parasthesia, Pre-Existing Deficit , Seizure, Syncope, Tremors, Unsteady Gait, Weakness, Other Endocrine: denies: No Symptoms, Excessive Sweating, Flushing, Increased Hunger, Increased Thirst, Intolerance to Cold, Intolerance to Heat, Unexplained Weight Gain, Unexplained Weight Loss, Other Hematology/Lymphatic: denies: No Symptoms, Easily Bruised, Excessive Bleeding, Swollen Glands, Other Psychiatric: denies: No Symptoms, Altered Sleep Pattern, Anxiety, Depression, Hallucinations, Panic, Paranoia, Suicidal, Other - Risk Factors Known Risk Factors: Yes: Age, Diabetes Mellitus, Hypercholesterolemia, Hypertension, Prior TX /Emb Stroke Vital Signs: Vital Signs Temperature 98.1 F 09/29/17 15:54 Pulse Rate 16 L 09/29/17 15:54 Respiratory Rate 16 09/29/17 15:54 Blood Pressure 116/65 09/29/17 15:54 O2 Sat by Pulse Oximetry (%) 98 09/29/17 15:54 Constitutional: Yes: Well Nourished, No Distress, Calm Eyes: Yes: WNL, Conjunctiva Clear, EOM Intact, PERRL HENT: Yes: WNL, Atraumatic, Normocephalic Neck: Yes: WNL, Supple, Trachea Midline Respiratory: Yes: WNL, Regular, CTA Bilaterally. No: Rales, Rhonchi, Wheezes Gastrointestinal: Yes: WNL, Normal Bowel Sounds, Soft. No: Distention, Tenderness Renal/: Yes: WNL Cardiovascular: Yes: Pulse Irregular. No: Regular Rate and Rhythm, Bradycardia , Tachycardia, Gallop, Rub, Varicosities JVD: No Carotid Bruit: No PMI: Non-Displaced Heart Sounds: Yes: S1, S2. No: Split S2, S3, S4, Clicks, Gallop, Rub, Bruit Murmur: No: Systolic Murmur, Diastolic Murmur Musculoskeletal: Yes: WNL Extremities: Yes: WNL Edema: No Peripheral Pulses WNL: Yes Peripheral Pulses: 2+ Left Doralis Pedis, 2+ Right Dorsalis Pedis Integumentary: Yes: WNL Neurological: Yes: Alert, Oriented Psychiatric: Yes: Alert, Oriented - Other Data Labs, Other Data: CBC, BMP 09/29/17 04:04 09/29/17 04:04 INR, PTT INR 1.57 (0.82-1.09) H 09/28/17 22:17 Troponin, BNP 09/28/17 09/29/17 22:17 04:04 Troponin I < 0.02 < 0.02 Troponin, BNP 09/28/17 09/29/17 22:17 04:04 Troponin I < 0.02 < 0.02 ekg-Afib 84bpm, poor R progression, nonspecific St abnl Echo: Report Reviewed, Image Reviewed Imaging - Results Chest X-ray: Report Reviewed, Image Reviewed EKG: Report Reviewed, Image Reviewed Other: Report Reviewed, Image Reviewed Assessment/Plan 82 year old woman h/o HTN, HLD, DMII, CAD prior [place] s/p CABG 2012, Afib on eliquis, h/o CVA, TIA, admitted with L sided chest pain. Pt seen and examined today in nad. Pt states that approx 1 week ago she strained a muscle on the R side of her chest when reaching across the car to open the car door. She states that pain resolved but now she felt the same pain on the L side of her chest. states it is exacerbated by certain movements of her L arm and change in position as well as palpation of her chest. CUrrently no chest pain. No relationship to exertion. No sob. no palpitations. no pnd, orthopnea, or LE edema. 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
[2017-09-29] MEDS ORDERED: ATORVASTATIN CA 10 MG TABLET (FP) PO SCH (22:00)
[2017-09-29] MEDS ORDERED: METOPROLOL TARTRATE 50 MG TABLET (FP) PO SCH (22:00)
== END 2017-09-29 16:14 | disposition home or self-care (01) ==
LOC: JER 19:10 → JERBED 09-29 02:00
PROVIDERS: ADMIT Internal Medicine; ATTEND Registered Nurse
DX: R07.89 Other chest pain (principal); I10 Essential (primary) hypertension; I25.10 Atherosclerotic heart disease of native coronary artery without angina pectoris; I25.2 Old myocardial infarction; I48.0 Paroxysmal atrial fibrillation; D69.6 Thrombocytopenia, unspecified; Z87.440 Personal history of urinary (tract) infections; Z79.84 Long term (current) use of oral hypoglycemic drugs; Z79.01 Long term (current) use of anticoagulants; Z86.73 Personal history of transient ischemic attack (TIA), and cerebral infarction without residual deficits; Z95.1 Presence of aortocoronary bypass graft; Z88.1 Allergy status to other antibiotic agents
CPT/HCPCS: 36415; 71045-TC-FY; 80048; 80053; 80061; 80076; 81003; 82550; 83036; 83721; 83735; 84100; 84439; 84443; 84484; 85025; 85610; 93005; 93010; 93306-TC; 99284-25; G0378

== ENCOUNTER 2019-11-22 12:28 | Inpatient (IN) | payer OTHER, BC ==
--- NOTE | 2019-11-22 14:12 | PDOC ---
History of Present Illness - General Chief Complaint: Back Pain Stated Complaint: Back Pain Time Seen by Provider: 11/22/19 14:12 - History of Present Illness Initial Comments: HPI: 84yo F with PMH of Afib on eliquis, HTN, PA, CVA/TIA presenting with back pain. Patient reports that she suffered a fall on Wednesday. She was wearing Birkenstock sandals when she inadvertently stepped on a wet paper towel that was on the ground and fell into a sitting position. Denies dizziness, weakness, lightheadedness, chest pain, or shortness of breath prior to the fall. Since that time, patient has had lower back pain. Presents today because the pain "did not go away." Patient took tylenol yesterday with some improvement. Has urinary incontinence at baseline. Denies stool incontinence or saddle anesthesia. Ambulates at baseline with a cane or walker, but now has difficulty walking due to pain. Lives by herself and is having trouble going to the bathroom, cooking meals, etc. with her back pain. Did not take her medications today. No fevers or chills. PCP: none (used to see a provider in [facility]) ROS: Constitutional: no fever, no chills HEENT: no throat pain, no dysphagia Cardiovascular: no chest pain, no palpitations Respiratory: no cough, no shortness of breath Gastrointestinal: no abdominal pain, no nausea Genitourinary: no dysuria, no hematuria Musculoskeletal: no leg pain +back pain Skin: no rash, no itching Neurologic: no headache, no weakness Psych: no agitation, no anxiety PE: General: Awake, alert, and fully oriented, in no acute distress Head: No signs of trauma Eyes: EOMI, sclera anicteric ENT: Moist mucus membranes Neck: Normal ROM, supple Lungs: Lungs clear, Normal breath sounds Cardio: Regular rhythm, S1 and S2 present Abdomen: Soft, nontender. No guarding, no rebound, no masses Extremities: Normal range of motion, Distal pulses present Skin: Warm, Dry, normal turgor Neurologic: Cranial nerves II through XII intact. Normal speech, sensation, strength, coordination. Deferred gait exam ED Course/MDM: DDX including but not limited to fracture, cauda equina, brain bleed, MSK CT imaging of head, cspine, and lspine Pelvis Xray Tylenol 11/22/19 14:12 CBC WBC 10.8 K/mm3 (4.0-10.0) H 11/22/19 14:30 RBC 3.78 M/mm3 (3.60-5.2) 11/22/19 14:30 Hgb 11.1 GM/dL (10.7-15.3) 11/22/19 14:30 Hct 34.8 % (32.4-45.2) 11/22/19 14:30 MCV 92.2 fl (80-96) 11/22/19 14:30 MCH 29.5 pg (25.7-33.7) 11/22/19 14:30 MCHC 32.0 g/dl (32.0-36.0) 11/22/19 14:30 RDW 15.7 % (11.6-15.6) H 11/22/19 14:30 Plt Count 65 K/MM3 (134-434) L 11/22/19 14:30 MPV 11.2 fl (7.5-11.1) H 11/22/19 14:30 Absolute Neuts (auto) 5.8 K/mm3 (1.5-8.0) 11/22/19 14:30 Neutrophils % 54.1 % (42.8-82.8) D 11/22/19 14:30 Neutrophils % (Manual) 63.3 % (42.8-82.8) 11/22/19 14:30 Band Neutrophils % 4.1 % 11/22/19 14:30 Lymphocytes % 8.2 % (8-40) D 11/22/19 14:30 Lymphocytes % (Manual) 11.2 % (8-40) D 11/22/19 14:30 Monocytes % 37.6 % (3.8-10.2) H 11/22/19 14:30 Monocytes % (Manual) 19 % (3.8-10.2) H 11/22/19 14:30 Eosinophils % 0.0 % (0-4.5) D 11/22/19 14:30 Eosinophils % (Manual) 0.0 % (0-4.5) 11/22/19 14:30 Basophils % 0.1 % (0-2.0) 11/22/19 14:30 Basophils % (Manual) 0.0 % (0-2.0) 11/22/19 14:30 Myelocytes % (Man) 2 % (0-2) 11/22/19 14:30 Promyelocytes % (Man) 0 % (0-2) 11/22/19 14:30 Blast Cells % (Manual) 0 % (0-0) 11/22/19 14:30 Nucleated RBC % 0 % (0-0) 11/22/19 14:30 Metamyelocytes 0 % (0-2) 11/22/19 14:30 Hypochromia 0 11/22/19 14:30 Platelet Estimate Decreased 11/22/19 14:30 Polychromasia 0 11/22/19 14:30 Poikilocytosis 0 11/22/19 14:30 Anisocytosis 0 11/22/19 14:30 Microcytosis 0 11/22/19 14:30 Macrocytosis 0 11/22/19 14:30 Mild leukocytosis No anemia CMP Sodium 133 mmol/L (136-145) L 11/22/19 14:30 Potassium 4.0 mmol/L (3.5-5.1) 11/22/19 14:30 Chloride 99 mmol/L (98-107) 11/22/19 14:30 Carbon Dioxide 24 mmol/L (21-32) 11/22/19 14:30 Anion Gap 10 MMOL/L (8-16) 11/22/19 14:30 BUN 14.2 mg/dL (7-18) 11/22/19 14:30 Creatinine 0.8 mg/dL (0.55-1.3) 11/22/19 14:30 Est GFR (CKD-EPI)AfAm 77.92 11/22/19 14:30 Est GFR (CKD-EPI)NonAf 67.23 11/22/19 14:30 Random Glucose 143 mg/dL (74-106) H 11/22/19 14:30 Calcium 9.3 mg/dL (8.5-10.1) 11/22/19 14:30 Total Bilirubin 3.4 mg/dL (0.2-1) H 11/22/19 14:30 AST 28 U/L (15-37) 11/22/19 14:30 ALT 20 U/L (13-61) 11/22/19 14:30 Alkaline Phosphatase 136 U/L (45-117) H 11/22/19 14:30 Total Protein 7.5 g/dl (6.4-8.2) 11/22/19 14:30 Albumin 4.3 g/dl (3.4-5.0) 11/22/19 14:30 Cr normal No transaminitis Pending imaging 11/22/19 16:47 EKG: rate 118, QTc 487, Afib, incomplete rbbb also present on previous EKG performed on 09/28/17 CXR as reported by radiology: "Single AP view of the chest reveals chin artifact, enlarged heart, weak inspiration, sclerotic knob, sternal sutures and clips and prominent len. Lungs are clear. The angles are sharp and the soft tissues are intact. An acute process is not seen. Since 09/29/2017, there is no change of an adverse nature. Impression : Weak inspiration. Previous 0HS. Prominent len. No acute chest pathology. If symptoms persist, further imaging may be of help. Reported By: David Chan MD 11/22/19 1503 " CT head: "TECHNIQUE: Sequential axial images were obtained from the base of the skull to the vertex. There is no evidence of acute intracranial hemorrhage, mass lesions or infarctions. There is a moderate degree of diffuse cerebral atrophy with sulcal widening and ventricular dilatation. Hypodense changes are noted within the periventricular white matter consistent with chronic, small vessel ischemia. There is no evidence of fracture or acute bony pathology. IMPRESSION: No evidence of acute intracranial pathology. Reported By: Bismark Michele MD 11/22/19 1638 " CT cspine: "Sequential axial images were obtained through the cervical spine from the base of the skull to the thoracic inlet. Coronal and sagittal reconstr ucted images were also obtained. There is no evidence of fracture, subluxation or acute bony abnormalities. Moderate degenerative arthritic changes are noted diffusely. The spinal canal is widely patent with no evidence of cord compromise. IMPRESSION: Moderate degenerative arthritis with no fracture or acute pathology. Reported By: Bismark Michele MD 11/22/19 1641 " CT lspine: "Sequential axial images were obtained through the lumbar spine. Coronal and sagittal reconstructed images were also performed. There is no evidence of fracture, subluxation or acute bony abnormalities. Moderately severe degenerative arthritic changes are noted diffusely, most marked at L2-3 and L4- 5. There is a mild degree of spinal stenosis, most marked at L2-3. If neurologic symptoms are present, an MRI may be warranted. IMPRESSION: Moderately severe degenerative arthritis with no fracture or acute bony pathology. Reported By: Bismark Michele MD 11/22/19 1646 " Patient having trouble performing ADLs at home; lives by herself Not a safe discharge home Amenable to rehab Plan for admission 11/22/19 16:52 Xray pelvis: "AP and frog lateral projections of the pelvis and right hip reveals no evidence of fracture, dislocation or acute bone or joint abnormalities. Mild degenerative changes are noted about the hip joint with the joint space well maintained. There is heavy vascular calcification, as well as a small bone infarct within the proximal right femur. IMPRESSION: Mild degenerative arthritis with no fracture or acute bone or joint abnormalities. Reported By: Bismark Michele MD 11/22/19 1710 " Discussed case with [facility] team who accepted patient for admission Admission order placed Past History - Medical History Allergies/Adverse Reactions: Allergies Allergy/AdvReac Type Severity Reaction Status Date / Time cephalexin monohydrate Allergy Intermediate Swelling Verified 11/22/19 17:58 [From Keflex] Home Medications: Ambulatory Orders Levothyroxine [Synthroid -] 50 mcg PO DAILY 03/21/12 Metoprolol Tartrate [Lopressor -] 50 mg PO HS 03/21/12 Metoprolol Tartrate 75 mg PO AM 09/28/17 Apixaban [Eliquis] 5 mg PO BID 09/29/17 Atorvastatin Calcium 10 mg PO HS 09/29/17 Anemia: No Asthma: No Cancer: No Cardiac Disorders: Yes (A-Fib, CAD) CVA: No COPD: No CHF: No Dementia: No Diabetes: Yes GI Disorders: No Disorders: No HTN: Yes Hypercholesterolemia: Yes Liver Disease: No Seizures: No Thyroid Disease: Yes - Surgical History Abdominal Surgery: No Appendectomy: No Cardiac Surgery: Yes (BYPASS) Cholecystectomy: No Lung Surgery: No Neurologic Surgery: No Orthopedic Surgery: No - Psycho-Social/Smoking History Smoking Status: No Smoking History: Never smoked Have you smoked in the past 12 months: No Number of Cigarettes Smoked Daily: 0 - Substance Abuse Hx (Audit-C & DAST Scrn) How often the patient has a drink containing alcohol: Never Score: In Men: 4 or > Positive; In Women: 3 or > Positive: 0 Screen Result (Pos requires Nsg. Audit-10AR): Negative In the last yr the pt used illegal drug/Rx for NonMed reason: No Score: Yes response is considered Positive: 0 Screen Result (Positive result requires Nsg. DAST-10): Negative *Physical Exam - Vital Signs Last Vital Signs Temp Pulse Resp BP Pulse Ox 98.2 F 106 H 19 165/111 H 98 11/22/19 12:30 11/22/19 13:51 11/22/19 12:30 11/22/19 13:51 11/22/19 12:30 ED Treatment Course - LABORATORY CBC & Chemistry Diagram: 11/23/19 07:25 11/23/19 07:25 Discharge - Discharge Information Problems reviewed: Yes Clinical Impression/Diagnosis: Back pain Qualifiers: Back pain location: low back pain Chronicity: acute Back pain laterality: midline Sciatica presence: without sciatica Qualified Code(s): M54.5 - Low back pain Condition: Guarded - Admission Yes - Follow up/Referral - Patient Discharge Instructions - Post Discharge Activity
[2019-11-22 15:04] LABS: BASO % 0.1 % (0-2.0); HEMATOCRIT 34.8 % (32.4-45.2); HEMOGLOBIN 11.1 GM/dL (10.7-15.3); LYMPH % 8.2 % (8-40); MCH 29.5 pg (25.7-33.7); MEAN CELL VOLUME 92.2 fl (80-96); MEAN PLT VOLUME 11.2 fl (7.5-11.1); MONO % 37.6 % (3.8-10.2); NEUT % 54.1 % (42.8-82.8); PLATELET COUNT 65 K/MM3 (134-434); RBC 3.78 M/mm3 (3.60-5.2); RDW 15.7 % (11.6-15.6); WHITE BLOOD COUNT 10.8 K/mm3 (4.0-10.0)
[2019-11-22 15:09] LABS: INR 1.82 (0.83-1.09); PROTHROMBIN TIME (PATIENT) 21.6 SEC (9.7-13.0)
[2019-11-22 15:12] LABS: ACTIVATED PTT 32.4 SECONDS (25.2-36.5)
[2019-11-22 15:29] LABS: ANISOCYTOSIS 0; MACROCYTOSIS 0; PLATELET ESTIMATE DECREASED
[2019-11-22] MEDS ORDERED: ACETAMINOPHEN 325 MG TABLET (FP) PO ONE (15:45)
--- NOTE | 2019-11-22 15:45 | PDOC ---
Documentation entered by Kat Sweeney SCRIBE, acting as scribe for Paige Gomez MD. Paige Gomez MD: This documentation has been prepared by the scribe, Kat Quiñones SCRIBE, under my direction and personally reviewed by me in its entirety. I confirm that the documentation accurately reflects all work, treatment, procedures, and medical decision making performed by me. Attending Attestation - Resident Resident Name: Margareth Palumbo - ED Attending Attestation I have performed the following: I have examined & evaluated the patient, The case was reviewed & discussed with the resident, I agree w/resident's findings & plan, Exceptions are as noted - HPI HPI: 11/22/19 15:46 The patient is an 84 year old female with a significant PMH of Afib (on eliquis) HTN, MD and CVA/TIA who presents to the ED for evaluation of lower back pain s/p fall on Wednesday (11/19/2019). She states that she was wearing sandels at which time she slipped on wet paper towel on the found and fell into a sitting positio n. She does endorse taking tylenol yesterday, with mild relief however the pain returned and wouldn't go away, prompting her arrival to the ED. Endorses urinary incontinence at baseline. Patient ambulates at baseline with a cane, however now endorses difficulty walking. Denies dizziness, LOC or head trauma. Denies any acute sy,tpoms prior to fall. Denies any other symptoms. PCP: none (used to see a provider in [facility]) - Physicial Exam PE: 11/22/19 15:40 General: well appearing HEENT: NCAT Chest: CTAB, good air entry CVS: + s1 s2, tachy Back: mild b/l paraspinal tenderness, no midline tenderness Extremities: warm and well perfused, sensation intact to light touch, moving all extremities - Medical Decision Making 11/22/19 15:42 84 yo F here with mechical fall and unable to perform ADLS, will r/o fx, also r/o ICH as patient is on a/c. Plan: -labs -cxr -pelvis xray -CT head -CT c-spine -CT L spine -pain control as needed -admit for falls and inability to perform her ADLs and has not been able to prepare her own food 2/2 pain This clinical encounter is taking place during a federal and state health care emergency attributable to the novel Crane Virus pandemic. The [employer] of the Department of Health and Human Services has declared, pursuant to the Public Health Service Act 319F-3 (42 U.S.C. 247d-6d), that a covered persons activities related to medical countermeasures against COVID-19 will be immune from liability under Federal and State law. Discharge - Discharge Information Problems reviewed: Yes Clinical Impression/Diagnosis: Back pain Qualifiers: Back pain location: low back pain Chronicity: acute Back pain laterality: midline Sciatica presence: without sciatica Qualified Code(s): M54.5 - Low back pain Condition: Stable - Follow up/Referral - Patient Discharge Instructions - Post Discharge Activity
[2019-11-22] MEDS ORDERED: ACETAMINOPHEN 325 MG TABLET (FP) ONE (15:48)
[2019-11-22 15:52] LABS: ALBUMIN 4.3 g/dl (3.4-5.0); BILIRUBIN,TOTAL 3.4 mg/dL (0.2-1); BLOOD UREA NITROGEN 14.2 mg/dL (7-18); CALCIUM 9.3 mg/dL (8.5-10.1); CREATININE 0.8 mg/dL (0.55-1.3); TOT PROT 7.5 g/dl (6.4-8.2)
[2019-11-22] MEDS ORDERED: APIXABAN 5 MG TABLET PO ONE (17:33)
[2019-11-22] MEDS ORDERED: METOPROLOL TARTRATE 50 MG TABLET (FP) PO ONE (17:34)
[2019-11-22] MEDS ORDERED: METOPROLOL TARTRATE 50 MG TABLET (FP) ONE (17:50)
[2019-11-22] MEDS ORDERED: APIXABAN 5 MG TABLET ONE (17:50)
--- NOTE | 2019-11-22 17:54 | PN ---
Teaching Attending Note Name of Resident: Zonia Garcia ATTENDING PHYSICIAN STATEMENT I saw and evaluated the patient. I reviewed the resident's note and discussed the case with the resident. I agree with the resident's findings and plan as documented. SUBJECTIVE: 84 year old female with known history of hypertension, CAD sp GA, CVA/TIA, A trial fibrillation on Eliquis, who was taken to the ED after a fall. Apparently she stepped onto a wet paper towel and slipped, landing on her buttocks. Pain at that area has been persistent and now unable to ambulate secondary to pain. OBJECTIVE: Gen appears appropriate for stated age HEENT: EOMI, no oral lesions neck: supple, no JVD elevation Chest: clear breath sounds CVS: RRR, no murmurs abd: soft, nontender,obese pannus, +BS ext: no edema, feet are warm and dry Integumentary: she has purpura and hematoma at the lateral portion of the distal 2/3 of the LLE [employer]: she is able to move her upper extremities with good range of motion. She is able to lift her LLE however, she has significant pain at the lower back with movement of the lower extremities prompting her to limit movement. Oriented x 3. ASSESSMENT AND PLAN: 1. Lower back pain secondary to fall - from history, fall was mechanical - lidocaine patch and tylenol for pain management - PT evaluation - may need GIGI (assessment by PT is pending) 2. Afib, rate is controlled - cont eliquis 3. CAD - chest pain free - cont home meds 4. DVT prophylaxis - on eliquis (#2) DW Dr Garcia. Agree with her history, physical exam, plans of care
--- NOTE | 2019-11-22 18:05 | HP ---
CHIEF COMPLAINT: s/p fall PCP: Dr. Newman HISTORY OF PRESENT ILLNESS: 84F w/ pmhx of Afib, HTN, CVA/TIA presents in the ED s/p fall. States she was in her kitchen on Wednesday, slipped on a wet paper towel and fell on her buttocks in a sitting position. She denied any prodromal symptoms such as headache, dizzines s, n/v, chest pain, sob during the fall. Since her fall she states she has ongoing lower back pain for which she took Tylenol without any symptomatic relief. Her back pain prompted her ED visit. At baseline she uses a cane, but has been having difficulty walking due to the pain. She lives alone and is usually able to perform her ADLs independently, but has been getting more difficulty to do so lately. Today she denies f/c, n/v, chest pain, sob, abd pain. She does report she is incontinent of urine and wears a diaper. ER course was notable for: (1) Afebrile, HR 109, BP 165/101 --> 146/89 (2) WBC 10.8, Pl 65, TBili 3.4, Alk phos 136 (3) CTH neg, CT L-spine/C-spine and Hip xray showed mod sev degen arthritis w/o fx Recent Travel: Denies PAST MEDICAL HISTORY: As per HPI PAST SURGICAL HISTORY: CABG tonsillectomy FAMILY HISTORY: Denies Social History: Smoking: Quit 30 years ago Alcohol: Drinks ~2 martinis daily Drugs: Denies Used to work at [employer] Allergies cephalexin monohydrate [From Nuji] Allergy (Intermediate, Verified 11/22/19 17:58) Swelling HOME MEDICATIONS: Home Medications Medication Instructions Recorded Levothyroxine [Synthroid -] 50 mcg PO DAILY 03/21/12 Metoprolol Tartrate [Lopressor -] 50 mg PO HS 03/21/12 metFORMIN HCL [Glucophage -] 500 mg PO DAILY 03/21/12 Metoprolol Tartrate 75 mg PO AM 09/28/17 Apixaban [Eliquis] 5 mg PO BID 09/29/17 Atorvastatin Calcium 10 mg PO HS 09/29/17 REVIEW OF SYSTEMS CONSTITUTIONAL: Absent: fever, chills, diaphoresis, generalized weakness, malaise, loss of appetite, weight change HEENT: Absent: rhinorrhea, nasal congestion, throat pain, throat swelling, difficulty swallowing, mouth swelling, ear pain, eye pain, visual changes CARDIOVASCULAR: Absent: chest pain, syncope, palpitations, irregular heart rate, lightheadedness, peripheral edema RESPIRATORY: Absent: cough, shortness of breath, dyspnea with exertion, orthopnea, wheezing, stridor, hemoptysis GASTROINTESTINAL: Absent: abdominal pain, abdominal distension, nausea, vomiting, diarrhea, constipation, melena, hematochezia GENITOURINARY: Absent: dysuria, frequency, urgency, hesitancy, hematuria, flank pain, genital pain MUSCULOSKELETAL: lower back pain Absent: myalgia, arthralgia, joint swelling, neck pain SKIN: Absent: rash, itching, pallor HEMATOLOGIC/IMMUNOLOGIC: Absent: easy bleeding, easy bruising, lymphadenopathy, frequent infections ENDOCRINE: Absent: unexplained weight gain, unexplained weight loss, heat intolerance, cold intolerance NEUROLOGIC: Absent: headache, focal weakness or paresthesias, dizziness, unsteady gait, seizure, mental status changes, bladder or bowel incontinence PSYCHIATRIC: Absent: anxiety, depression, suicidal or homicidal ideation, hallucinations. PHYSICAL EXAMINATION Vital Signs - 24 hr 11/22/19 11/22/19 11/22/19 12:30 13:51 17:57 Temperature 98.2 F 98.6 F Pulse Rate 109 H Pulse Rate [ 106 H 105 H Apical] Respiratory 19 19 Rate Blood Pressure 174/103 H Blood Pressure 165/101 H 146/89 [Left Arm] O2 Sat by Pulse 98 97 Oximetry (%) GENERAL: Pleasant, well-appearing female, NAD. AAOx3. HEENT: AT/NC. EOMI. Dry mucus membranes. NECK: Normal range of motion, supple without lymphadenopathy, JVD, or masses. LUNGS: CTA b/l. Symmetric chest rise. Good respiratory effort. No wheezes/rales. HEART: Irregularly, irregular. S1, S2 ABDOMEN: Soft, NT/ND. Normoactive BS. No rebound tenderness/guarding. MUSCULOSKELETAL: +TTP in lower back. Limited ROM due to pain. EXTREMITIES: Contusion on anterior lower L leg. No peripheral edema noted. NEUROLOGICAL: Cranial nerves II-XII intact. Normal speech. SKIN: Warm, dry, normal turgor, no rashes or lesions noted, normal capillary refill. Laboratory Results - last 24 hr 11/22/19 11/22/19 11/22/19 14:30 14:30 14:30 WBC 10.8 H RBC 3.78 Hgb 11.1 Hct 34.8 MCV 92.2 MCH 29.5 MCHC 32.0 RDW 15.7 H Plt Count 65 L MPV 11.2 H Absolute Neuts (auto) 5.8 Neutrophils % 54.1 D Neutrophils % (Manual) 63.3 Band Neutrophils % 4.1 Lymphocytes % 8.2 D Lymphocytes % (Manual) 11.2 D Monocytes % 37.6 H Monocytes % (Manual) 19 H Eosinophils % 0.0 D Eosinophils % (Manual) 0.0 Basophils % 0.1 Basophils % (Manual) 0.0 Myelocytes % (Man) 2 Promyelocytes % (Man) 0 Blast Cells % (Manual) 0 Nucleated RBC % 0 Metamyelocytes 0 Hypochromia 0 Platelet Estimate Decreased Polychromasia 0 Poikilocytosis 0 Anisocytosis 0 Microcytosis 0 Macrocytosis 0 PT with INR 21.60 H INR 1.82 H PTT (Actin FS) 32.4 Sodium 133 L Potassium 4.0 Chloride 99 Carbon Dioxide 24 Anion Gap 10 BUN 14.2 Creatinine 0.8 Est GFR (CKD-EPI)AfAm 77.92 Est GFR (CKD-EPI)NonAf 67.23 Random Glucose 143 H Calcium 9.3 Total Bilirubin 3.4 H AST 28 ALT 20 Alkaline Phosphatase 136 H Total Protein 7.5 Albumin 4.3 ASSESSMENT/PLAN: 84F w/ pmhx of Afib, HTN, CVA/TIA, hypothyroidism presents in the ED s/p fall. #Mechanical Fall -CTH, CT L/C spine, Hip xray all neg for acute pathology -Fall risk precautions -PT -B12/Folate ordered -PO Tylenol for pain -May give Lidocaine patch if more pain not controlled #Afib; Rate-controlled. Cont home Eliquis 5 BID. Will need to confirm home BB #HTN; Normotensive. WIll need to confirm dose of BB. #Hypothyroidism; Cont home med: Levothyroxine 50 #CVA/TIA; No acute issues. Cont home meds: Atorvastatin 10 #Prophylaxis DVT: Cont home Eliquis #FEN -PO hydration -recheck lytes in AM -Diabetic/Na diet Dispo -Admit to med-surg Visit type - Medication Review Med list reviewed for High Risk Meds patients 65 and older: Yes - Emergency Visit Emergency Visit: Yes ED Registration Date: 11/22/19 Care time: The patient presented to the Emergency Department on the above date and was hospitalized for further evaluation of their emergent condition. - New Patient This patient is new to me today: Yes Date on this admission: 11/22/19 - Critical Care Critical Care patient: No ATTENDING PHYSICIAN STATEMENT I saw and evaluated the patient. I reviewed the resident's note and discussed the case with the resident. I agree with the resident's findings and plan as documented. SUBJECTIVE: OBJECTIVE: ASSESSMENT AND PLAN:
[2019-11-22] MEDS: ATORVASTATIN CA 10 MG TABLET (FP) PO SCH (22:25)
[2019-11-22] MEDS: APIXABAN 5 MG TABLET PO SCH (22:25)
[2019-11-23] MEDS: ACETAMINOPHEN 325 MG TABLET (FP) PO PRN ×3 (05:48→21:21)
[2019-11-23] MEDS: LEVOTHYROXINE NA 50 MCG TABLET (FP) PO SCH (06:42)
[2019-11-23 08:55] LABS: BASO % 0.1 % (0-2.0); HEMATOCRIT 32.1 % (32.4-45.2); HEMOGLOBIN 10.3 GM/dL (10.7-15.3); LYMPH % 6.1 % (8-40); MCH 29.6 pg (25.7-33.7); MEAN CELL VOLUME 92.5 fl (80-96); MEAN PLT VOLUME 11.4 fl (7.5-11.1); MONO % 45.1 % (3.8-10.2); NEUT % 48.7 % (42.8-82.8); PLATELET COUNT 58 K/MM3 (134-434); RBC 3.48 M/mm3 (3.60-5.2); RDW 15.8 % (11.6-15.6)
[2019-11-23 09:24] LABS: ALBUMIN 3.6 g/dl (3.4-5.0); BILIRUBIN,TOTAL 2.6 mg/dL (0.2-1); BLOOD UREA NITROGEN 14.8 mg/dL (7-18); CALCIUM 8.8 mg/dL (8.5-10.1); CREATININE 0.7 mg/dL (0.55-1.3); MAGNESIUM 2.1 mg/dL (1.8-2.4); PHOSPHOROUS 2.7 mg/dL (2.5-4.9); POTASSIUM 3.9 mmol/L (3.5-5.1); TOT PROT 6.5 g/dl (6.4-8.2)
[2019-11-23 09:51] LABS: ANISOCYTOSIS 1+; MACROCYTOSIS 0; PLATELET ESTIMATE DECREASED
[2019-11-23] MEDS: APIXABAN 5 MG TABLET PO SCH ×2 (11:30→21:17)
--- NOTE | 2019-11-23 12:11 | EKG ---
Test Reason : Blood Pressure : / mmHG Vent. Rate : 118 BPM Atrial Rate : 120 BPM P-R Int : 000 ms QRS Dur : 094 ms QT Int : 348 ms P-R-T Axes : 000 -35 -44 degrees QTc Int : 487 ms ATRIAL FIBRILLATION WITH RAPID VENTRICULAR RESPONSE LEFT AXIS DEVIATION INCOMPLETE RIGHT BUNDLE BRANCH BLOCK POSSIBLE ANTERIOR INFARCT , AGE UNDETERMINED ABNORMAL ECG WHEN COMPARED WITH ECG OF 28-SEP-2017 19:30, T WAVE INVERSION NOW EVIDENT IN ANTEROLATERAL LEADS Confirmed by FLORENTIN VEGA MD ([id number]) on 11/23/2019 12:11:27 PM Referred By: Confirmed By:FLORENTIN VEGA MD
--- NOTE | 2019-11-23 14:07 | PN ---
Teaching Attending Note Name of Resident: Arnold Parks ATTENDING PHYSICIAN STATEMENT I saw and evaluated the patient. I reviewed the resident's note and discussed the case with the resident. I agree with the resident's findings and plan as documented. SUBJECTIVE: Seen and examined at bedside. Patient reports pain is improved and is able to a mbulate. Seen by PT who recommended home PT/VNS. Imaging negative for acute fracture. Patient is medically cleared for discharge. Noted to have monocytosis and thrombocytopenia. Concern for possible MDS. Will refer for outpatient hematology evaluation.Patient also reports symptoms of depression. Will discharge on an SSRI. Patient is to follow-up with her PCP within 1 to 2 weeks for follow-up OBJECTIVE: PE: Per resident note Labs/Imaging: reviewed ASSESSMENT AND PLAN: 84-year-old past medical history of A. fib, hypertension, CVA presents to the ED status post mechanical fall. Admitted for inability to ambulate. Assessment and plan as above
[2019-11-23] MEDS ORDERED: METOPROLOL TARTRATE 25 MG TABLET (FP) PO SCH (15:15)
[2019-11-23] MEDS ORDERED: METOPROLOL TARTRATE 50 MG TABLET (FP) PO ONE ×5 (15:45→22:00)
[2019-11-23] MEDS: LIDOCAINE 5% TOPICAL PATCH TP SCH (15:51)
--- NOTE | 2019-11-23 18:42 | PN ---
Physical Exam: SUBJECTIVE: Patient seen and examined at bedside. The patient denies lightheadedness or dizziness. The patient reported feeling: depressed mood, anhedonia, weight change, psychomotor retardation, feeling guilt, and decreased concentration. The patient denies thoughts of hurting herself or suicide. The depression has especially happened after the of her brother and May followed by the of a friend and multiple small personal problems. When asked about drinking, the patient also reported drinking 2 drinks a day, citing that she is [place]. She reports that she has been drinking for decades and has no interest in not drinking. The dangers of alcohol abuse was explaining to the patient and she responded that she understands, but would rather keep drinking at her age of 84. The patient also reported urinary incontinence for 1 year, for which she wears a diaper. She does not appear to have a wide based gait on exam, and reports only mild cognitive difficulty with her memory, although the Head CT does show moderate ventricular dilatation. In the afternoon the patient developed AFib with RVR and was given her met oprolol medication. OBJECTIVE: Vital Signs Period Temp Pulse Resp BP Sys/Littlejohn Pulse Ox Last 24 Hr 97.5 F-98.1 F 90-125 16-20 128-181/76-97 95-98 GENERAL: The patient is awake, alert, and fully oriented, in no acute distress. HEAD: Normal with no signs of trauma. EYES: Extraocular movements intact. No ptosis. ENT: Ears normal, nares patent, oropharynx clear without exudates, moist mucous membranes. NECK: Trachea midline, full range of motion, supple. LUNGS: Breath sounds equal, clear to auscultation bilaterally, no wheezes, no crackles, no accessory muscle use. HEART: Irregular rhythm, S1, S2 without murmur, rub or gallop. ABDOMEN: Soft, nontender, nondistended, normoactive bowel sounds, no guarding, no rebound, no masses. EXTREMITIES: 2+ pulses, warm, well-perfused, no edema. NEUROLOGICAL: Normal speech, No wide based gait observed. PSYCH: Normal mood, normal affect. SKIN: Warm, dry, normal turgor, no rashes or lesions noted Laboratory Results - last 24 hr 11/22/19 11/22/19 11/23/19 14:30 18:15 07:25 WBC 12.0 H RBC 3.48 L Hgb 10.3 L Hct 32.1 L MCV 92.5 MCH 29.6 MCHC 32.0 RDW 15.8 H Plt Count 58 L MPV 11.4 H Absolute Neuts (auto) 5.9 Neutrophils % 48.7 Neutrophils % (Manual) 51.0 Band Neutrophils % 0.0 Lymphocytes % 6.1 L D Lymphocytes % (Manual) 4.1 L D Monocytes % 45.1 H Monocytes % (Manual) 45 H D Eosinophils % 0.0 Eosinophils % (Manual) 0.0 Basophils % 0.1 Basophils % (Manual) 0.0 Myelocytes % (Man) 0 D Promyelocytes % (Man) 0 Blast Cells % (Manual) 0 Nucleated RBC % 0 Metamyelocytes 0 Hypochromia 0 Platelet Estimate Decreased Polychromasia 1+ Poikilocytosis 0 Anisocytosis 1+ Microcytosis 1+ Macrocytosis 0 Sodium 133 L Potassium 4.0 Chloride 99 Carbon Dioxide 24 Anion Gap 10 BUN 14.2 Creatinine 0.8 Est GFR (CKD-EPI)AfAm 77.92 Est GFR (CKD-EPI)NonAf 67.23 Random Glucose 143 H Calcium 9.3 Phosphorus Magnesium Total Bilirubin 3.4 H Direct Bilirubin 1.0 H AST 28 ALT 20 Alkaline Phosphatase 136 H Total Protein 7.5 Albumin 4.3 Vitamin B12 1018 H Serum Folate 23 H TSH Free T4 COVID-19 ([facility]) Not detected 11/23/19 11/23/19 11/23/19 07:25 07:25 07:25 WBC RBC Hgb Hct MCV MCH MCHC RDW Plt Count MPV Absolute Neuts (auto) Neutrophils % Neutrophils % (Manual) Band Neutrophils % Lymphocytes % Lymphocytes % (Manual) Monocytes % Monocytes % (Manual) Eosinophils % Eosinophils % (Manual) Basophils % Basophils % (Manual) Myelocytes % (Man) Promyelocytes % (Man) Blast Cells % (Manual) Nucleated RBC % Metamyelocytes Hypochromia Platelet Estimate Polychromasia Poikilocytosis Anisocytosis Microcytosis Macrocytosis Sodium 134 L Potassium 3.9 Chloride 100 Carbon Dioxide 26 Anion Gap 9 BUN 14.8 Creatinine 0.7 Est GFR (CKD-EPI)AfAm 91.57 Est GFR (CKD-EPI)NonAf 79.00 Random Glucose 141 H Calcium 8.8 Phosphorus 2.7 Magnesium 2.1 Total Bilirubin 2.6 H Direct Bilirubin AST 23 ALT 18 Alkaline Phosphatase 114 Total Protein 6.5 Albumin 3.6 Vitamin B12 985 Serum Folate 24 H TSH 2.95 Free T4 0.95 COVID-19 ([facility]) Active Medications Generic Name Dose Route Start Last Admin Trade Name Glenis PRN Reason Stop Dose Admin Acetaminophen 650 mg 11/22/19 20:24 11/23/19 12:57 Tylenol - PO 650 mg Q6H PRN Administration Fever Or Pain Apixaban 5 mg 11/22/19 22:00 11/23/19 11:30 Eliquis - PO 5 mg BID AMANDA Administration Atorvastatin Calcium 10 mg 11/22/19 22:00 11/22/19 22:25 Lipitor - PO 10 mg HS AMANDA Administration Levothyroxine Sodium 50 mcg 11/23/19 07:00 11/23/19 06:42 Synthroid - PO 50 mcg DAILY@0700 [facility] Administration Lidocaine 1 patch 11/23/19 15:15 11/23/19 15:51 Lidoderm Patch - TP 1 patch DAILY AMANDA Administration Metoprolol Tartrate 50 mg 11/23/19 22:00 Lopressor - PO 11/23/19 22:01 ONCE ONE Miscellaneous 1 each 11/23/19 22:00 Lidoderm Patch Removal MC DAILY@2200 [facility] ASSESSMENT/PLAN: 84 year old female with a past medical history that includes AFib, HTN, Hypothyroidism, HLD, CVA/TIA, CABG, who presents after falling due to slipping on a wet paper towel. 1. Fall secondary to slipping on a wet paper towel - Imaging shows no acute fracture 2. AFib with RVR - Heart rate of 125 - The patient was given the Metoprolol medication 3. Depression secondary to of a relative and friend about 6 months ago vs MDD - The patient reports that her brother in May, followed by the of a friend, followed by multiple small personal problems - The patient reported feeling depressed mood, anhedonia, weight change, psychomotor retardation, feeling guilt, and decreased concentration - The patient fulfills DSM-5 Criteria for Major Depressive Disorder - The patient reported being interested in anti-depression medication possibly 4. Alcohol Abuse - The patient reports drinking 2 drinks a day, but is uninterested in decreasing her alcohol consumption - The dangers of drinking was explained to the patient, and the patient reported that she understands 5. NPH unlikely - The patient reports urinary incontinence for a year and mild cognitive difficulty, however the patient does not seem to have a wide based gait when walking. - CT Head shows moderate ventricular dilatation 6. HTN - The patient is receiving Metoprolol 7. Hypothyroidism - The patient is receiving Levothyroxine - TSH is normal at 2.95 8. HLD - The patient is receiving Atorvastatin # FEN - Low Sodium Diet DVT PPx - Eliquis Dispo - Possible discharge tomorrow pending how she responds to the Metoprolol for her AFib with RVR. Visit type - Emergency Visit Emergency Visit: Yes ED Registration Date: 11/22/19 Care time: The patient presented to the Emergency Department on the above date and was hospitalized for further evaluation of their emergent condition. - New Patient This patient is new to me today: Yes Date on this admission: 11/23/19 - Critical Care Critical Care patient: No - Discharge Referral Referred to [facility] No - Medication Review Med list reviewed for High Risk Meds patients 65 and older: Yes ATTENDING PHYSICIAN STATEMENT I saw and evaluated the patient. I reviewed the resident's note and discussed the case with the resident. I agree with the resident's findings and plan as documented. SUBJECTIVE: OBJECTIVE: ASSESSMENT AND PLAN:
[2019-11-23] MEDS: ATORVASTATIN CA 10 MG TABLET (FP) PO SCH (21:17)
[2019-11-23] MEDS: LIDOCAINE PATCH REMOVAL MC SCH (21:17)
[2019-11-24] MEDS: LEVOTHYROXINE NA 50 MCG TABLET (FP) PO SCH (06:41)
[2019-11-24] MEDS: METOPROLOL TARTRATE 50 MG TABLET (FP) PO SCH ×2 (08:02→10:02)
[2019-11-24] MEDS: ACETAMINOPHEN 325 MG TABLET (FP) PO PRN ×2 (08:15→16:36)
[2019-11-24] MEDS: LIDOCAINE 5% TOPICAL PATCH TP SCH (10:01)
[2019-11-24] MEDS: APIXABAN 5 MG TABLET PO SCH ×2 (10:01→21:28)
[2019-11-24 10:48] VITALS: BMI 25.6
--- NOTE | 2019-11-24 12:24 | DS ---
Physical Exam: SUBJECTIVE: Patient seen and examined at bedside. The patient reported feeling depressed mood, anhedonia, weight change, psychomotor retardation, feeling guilt, and decreased concentration. The patient denies lightheadedness, dizziness, and thoughts of hurting herself or suicide. OBJECTIVE: Vital Signs Period Temp Pulse Resp BP Sys/Littlejohn Pulse Ox Last 24 Hr 97.8 F-98.1 F 85-125 18-18 146-181/63-106 94-99 PHYSICAL EXAM GENERAL: The patient is awake, alert, and fully oriented, in no acute distress. HEAD: Normal with no signs of trauma. EYES: Extraocular movements intact. No ptosis. ENT: Ears normal, nares patent, oropharynx clear without exudates, moist mucous membranes. NECK: Trachea midline, full range of motion, supple. LUNGS: Breath sounds equal, clear to auscultation bilaterally, no wheezes, no crackles, no accessory muscle use. HEART: Irregular rhythm, S1, S2 without murmur, rub or gallop. ABDOMEN: Soft, nontender, nondistended, normoactive bowel sounds, no guarding, no rebound, no masses. EXTREMITIES: 2+ pulses, warm, well-perfused, no edema. NEUROLOGICAL: Normal speech, No wide based gait observed. PSYCH: Normal mood, normal affect. SKIN: Warm, dry, normal turgor, no rashes or lesions noted LABS HOSPITAL COURSE: Date of Admission:11/22/19 84 year old female with a past medical history that includes AFib, HTN, Hypothyroidism, HLD, CVA/TIA, CABG, who presents after falling due to slipping on a wet paper towel. Imaging showed no acute fracture. The patient was assessed for NPH. CT Head showed moderate ventricular dilatation and the patient reported 1 year of incontinence of urine, for which she wears a diaper; however, the patient did not display a wide based gait when asked to take a few steps and the patient did not seem to have dementia. The patient was also counseled regarding alcohol cessation and the dangers of drinking alcohol, as she drinks 2 drinks a day; however, the patient reported not being interested in reducing her alcohol intake. On review of systems questioning, the patient reported signs of depression after the recent of a family member and of a friend; however, the patient denied thoughts of suicide or harming herself. During her hospital stay, the patient developed AFib with RVR and was given Metoprolol with resolution of her AFib with RVR. The patient was also found to have elevated Monocytes (45%) and low platelets (58,000), and was told to follow up with the Outsole Leveler Dr. Jeff as outpatient. Date of Discharge: 11/24/19 Minutes to complete discharge: 41 Discharge Summary Problems reviewed: Yes Reason For Visit: Back Pain Current Active Problems Back pain (Acute) Hospital Course: Seen and examined at bedside. Patient reports pain is improved and is able to ambulate. Seen by PT who recommended home PT/VNS. Imaging negative for acute fracture. Patient is medically cleared for discharge. Noted to have monocytosis and thrombocytopenia. Concern for possible MDS. Will refer for outpatient hematology evaluation.Patient also reports symptoms of depression. Will discharge on an SSRI. Patient is to follow-up with her PCP within 1 to 2 weeks for follow-up. Course was complicated by hypertension and A. fib with RVR, latter of which improved with reinstatement of home metoprolol. Patient will be discharged on lisinopril. She can follow-up with her seismograph shooter for further treatment of her blood pressure. Condition: Stable - Instructions Diet, Activity, Other Instructions: You were evaluated in the hospital after sustaining a fall. Imaging of your head, neck, lower back, hip did not reveal any fractures. 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 Your bloodwork was notable for a low platelet count, and elevated monocytes. You had symptoms suggestive of depressive mood. You were evaluated by Physical therapy and it deemed safe for you to be discharged home. MEDICATIONS: - START taking: --Quetiapine[SEROQUEL]: take 50mg daily, then discuss with your regular doctor --apply Lidoderm patches to your areas of body aches. Leave in place for 12hs at a time. Only apply one patch per area, per day --over the counter acetaminophen for aches. Limit your dosage to less than 4000mg daily - please continue with your previously prescribed medications Please follow-up with the physcians below: - Primary Care Physician(within 2weeks): to discuss your recent hospitalization. Discuss the efficacy of the antidepressant medication. Recheck your blood pressure and discuss if any adjustments in your medications need to be made. - Outsole Leveler(Tomer): to discuss your abnormal blood results(low platelets, elevated monocytes) Additional Instructions: - Please avoid activities that increase your fall risk - Please reach out to your doctor, family, or friends if you have a rapidly dec reased mood and have thoughts of hurting yourself Please seek immediate Medical Evaluation if you experience: - falls - fever, chills, chest pain, SOB Referrals: Franko Jeff MD [Staff Physician] - 1 Month (For followup of abnormal platelets and white blood cell count concerning for bone marrow disease) Marlena Newman [Primary Care Provider] - Disposition: [facility]ACILITY - Home Medications Comprehensive Discharge Medication List: Ambulatory Orders Levothyroxine [Synthroid -] 50 mcg PO HS 03/21/12 Metoprolol Tartrate 50 mg PO HS 09/28/17 Apixaban [Eliquis] 5 mg PO BID 09/29/17 Atorvastatin Calcium 10 mg PO HS 09/29/17 Metoprolol Tartrate [Lopressor -] 75 mg PO AM 11/23/19 Quetiapine Fumarate [Seroquel -] 150 mg PO HS #90 tablet 11/23/19 Walker [Ultra-Light Rollator] 1 each ASDIR #1 each 11/23/19 Lidocaine 5% Patch [Lidoderm -] 1 patch TP DAILY #10 patch 11/24/19 Lidocaine Patch Removal [Lidoderm Patch Removal] 1 each MC DAILY@2200 #10 each 11/24/19 This patient is new to me today: No Emergency Visit: Yes ED Registration Date: 11/22/19 Care time: The patient presented to the Emergency Department on the above date and was hospitalized for further evaluation of their emergent condition. Critical Care patient: No - Discharge Referral Referred to [facility] No ATTENDING PHYSICIAN STATEMENT I saw and evaluated the patient. I reviewed the resident's note and discussed the case with the resident. I agree with the resident's findings and plan as documented. SUBJECTIVE: OBJECTIVE: ASSESSMENT AND PLAN:
--- NOTE | 2019-11-24 17:46 | PN ---
Teaching Attending Note Name of Resident: Arnold Parks ATTENDING PHYSICIAN STATEMENT I saw and evaluated the patient. I reviewed the resident's note and discussed the case with the resident. I agree with the resident's findings and plan as documented. UBJECTIVE: Seen and examined at bedside. Patient reports pain is improved and is able to ambulate. HR and BP better controlled following resumption of metoprolol and pain control. OBJECTIVE: Last Vital Signs Temp Pulse Resp BP Pulse Ox 98.0 F 100 H 18 178/95 H 95 11/24/19 06:00 11/24/19 17:30 11/24/19 17:30 11/24/19 17:30 11/24/19 14:00 PE: Per resident note Labs/Imaging: reviewed ASSESSMENT AND PLAN: 84-year-old past medical history of A. fib, hypertension, CVA presents to the ED status post mechanical fall. Admitted for inability to ambulate. Course was complicated by A. fib with RVR and hypertension which improved with pain control and resumption of patient's home metoprolol. Seen by PT who recommended home PT/VNS. Imaging negative for acute fracture. Patient is medically cleared for discharge. Noted to have monocytosis and thrombocytopenia. Concern for possible MDS. Will refer for outpatient hematology evaluation.Patient also reports symptoms of depression. Will discharge on an SSRI. Patient is to follow-up with her PCP within 1 to 2 weeks for follow-up
[2019-11-24] MEDS ORDERED: METOPROLOL TARTRATE 50 MG TABLET (FP) PO SCH ×2 (19:00→22:00)
[2019-11-24] MEDS: ATORVASTATIN CA 10 MG TABLET (FP) PO SCH (21:28)
[2019-11-24] MEDS: LIDOCAINE PATCH REMOVAL MC SCH (21:28)
[2019-11-25] MEDS: ACETAMINOPHEN 325 MG TABLET (FP) PO PRN ×2 (04:48→12:30)
[2019-11-25] MEDS: METOPROLOL TARTRATE 50 MG TABLET (FP) PO SCH ×2 (05:07→10:17)
[2019-11-25] MEDS: LEVOTHYROXINE NA 50 MCG TABLET (FP) PO SCH (06:20)
[2019-11-25] MEDS ORDERED: METOPROLOL TARTRATE 25 MG TABLET (FP) PO ONE (06:30)
[2019-11-25] MEDS ORDERED: LISINOPRIL 10 MG TABLET (FP) PO SCH (10:00)
[2019-11-25] MEDS: LIDOCAINE 5% TOPICAL PATCH TP SCH (10:17)
[2019-11-25] MEDS: APIXABAN 5 MG TABLET PO SCH (10:17)
[2019-11-25 13:58] VITALS: BP 146/66; PULSE 80; TEMP 98.1
--- NOTE | 2019-11-25 14:03 | DS ---
Physical Examination Vital Signs: Vital Signs Temperature 98.1 F 11/25/19 13:45 Pulse Rate 80 11/25/19 13:45 Respiratory Rate 18 11/25/19 13:45 Blood Pressure 146/66 11/25/19 13:45 O2 Sat by Pulse Oximetry (%) 97 11/25/19 13:45 Findings/Remarks: Seen and examined at bedside. Patient reports intermittent hip pain that is controlled. Has been hypertension overnight, started on lisinopril with good results. Labs: CBC, BMP 11/23/19 07:25 11/23/19 07:25 Discharge Summary Problems reviewed: Yes Reason For Visit: Back Pain Current Active Problems Back pain (Acute) Hospital Course: Seen and examined at bedside. Patient reports pain is improved and is able to ambulate. Seen by PT who recommended home PT/VNS. Imaging negative for acute fracture. Patient is medically cleared for discharge. Noted to have monocytosis and thrombocytopenia. Concern for possible MDS. Will refer for out patient hematology evaluation.Patient also reports symptoms of depression. Will discharge on an SSRI. Patient is to follow-up with her PCP within 1 to 2 weeks for follow-up. Course was complicated by hypertension and A. fib with RVR, latter of which improved with reinstatement of home metoprolol. Patient will be discharged on lisinopril. She can follow-up with her dressmaker or tailor for further treatment of her blood pressure. Condition: Stable - Instructions Diet, Activity, Other Instructions: You were evaluated in the hospital after sustaining a fall. Imaging of your head, neck, lower back, hip did not reveal any fractures. 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 Your bloodwork was notable for a low platelet coun t, and elevated monocytes. You had symptoms suggestive of depressive mood. You were evaluated by Physical therapy and it deemed safe for you to be discharged home. MEDICATIONS: - START taking: --Quetiapine[SEROQUEL]: take 50mg daily, then discuss with your regular doctor --apply Lidoderm patches to your areas of body aches. Leave in place for 12hs at a time. Only apply one patch per area, per day --over the counter acetaminophen for aches. Limit your dosage to less than 4000mg daily - please continue with your previously prescribed medications Please follow-up with the physcians below: - Primary Care Physician(within 2weeks): to discuss your recent hospitalization. Discuss the efficacy of the antidepressant medication. Recheck your blood pressure and discuss if any adjustments in your medications need to be made. - Tax Attorney(Tomer): to discuss your abnormal blood results(low platelets, elevated monocytes) Additional Instructions: - Please avoid activities that increase your fall risk - Please reach out to your doctor, family, or friends if you have a rapidly decreased mood and have thoughts of hurting yourself Please seek immediate Medical Evaluation if you experience: - falls - fever, chills, chest pain, SOB Referrals: Marlena Newman [Primary Care Provider] - Franko Jeff MD [Staff Physician] - 1 Month (For followup of abnormal plate lets and white blood cell count concerning for bone marrow disease) Disposition: [facility] - Home Medications Comprehensive Discharge Medication List: Ambulatory Orders Levothyroxine [Synthroid -] 50 mcg PO HS 03/21/12 Metoprolol Tartrate 50 mg PO HS 09/28/17 Apixaban [Eliquis] 5 mg PO BID 09/29/17 Atorvastatin Calcium 10 mg PO HS 09/29/17 Metoprolol Tartrate [Lopressor -] 75 mg PO AM 11/23/19 Quetiapine Fumarate [Seroquel -] 150 mg PO HS #90 tablet 11/23/19 Walker [Ultra-Light Rollator] 1 each ASDIR #1 each 11/23/19 Lidocaine 5% Patch [Lidoderm -] 1 patch TP DAILY #10 patch 11/24/19 Lidocaine Patch Removal [Lidoderm Patch Removal] 1 each MC DAILY@2200 #10 each 11/24/19 Lisinopril 10 mg PO DAILY #30 tablet 11/25/19 Prescription Drug Monitoring Program (I-STOP) results: I-STOP not reviewed This patient is new to me today: No Emergency Visit: Yes ED Registration Date: 11/22/19 Care time: The patient presented to the Emergency Department on the above date and was hospitalized for further evaluation of their emergent condition. Critical Care patient: No - Discharge Referral Referred to [facility] Med [facility].: No
== END 2019-11-25 15:50 | DRG 552 ==
LOC: JER 12:28 → JERBED 17:51 → J5S 20:10
PROVIDERS: ADMIT Internal Medicine; ATTEND Internal Medicine
DX: M46.96 Unspecified inflammatory spondylopathy, lumbar region (principal); I48.91 Unspecified atrial fibrillation; Z79.01 Long term (current) use of anticoagulants; I10 Essential (primary) hypertension; I25.2 Old myocardial infarction; Z86.73 Personal history of transient ischemic attack (TIA), and cerebral infarction without residual deficits; I25.10 Atherosclerotic heart disease of native coronary artery without angina pectoris; M54.5 Low back pain; E03.9 Hypothyroidism, unspecified; Z95.1 Presence of aortocoronary bypass graft; F32.9 Major depressive disorder, single episode, unspecified; F10.10 Alcohol abuse, uncomplicated; D69.6 Thrombocytopenia, unspecified; W01.0XXA Fall on same level from slipping, tripping and stumbling without subsequent striking against object, initial encounter; Y93.89 Activity, other specified; Y92.098 Other place in other non-institutional residence as the place of occurrence of the external cause; Y99.8 Other external cause status
CPT/HCPCS: 36415; 70450-TC; 71045-TC-FY; 72125-TC; 72131-TC; 73523-TC-FY; 80053; 82248; 82607; 82746; 83735; 84100; 84439; 84443; 84481; 85025; 85610; 85730; 93005; 93010; 97116-GP; 97162-GP; 99285-25; U0003

== ENCOUNTER 2019-12-20 02:58 | Emergency (ER) | payer OTHER, BC ==
[2019-12-20 03:27] VITALS: BMI 21.1
--- NOTE | 2019-12-20 03:31 | PDOC ---
Attending Attestation - Resident Resident Name: Margarito Hsu - ED Attending Attestation I have performed the following: I have examined & evaluated the patient, The case was reviewed & discussed with the resident, I agree w/resident's findings & plan - HPI HPI: 12/20/19 03:30 see resident hpi - Physicial Exam PE: 12/20/19 03:30 see resident exam - Critical Care Time Total Critical Care Time: 90 Critical Care Statement: The care of this patient involved high complexity decision making to prevent further life threatening deterioration of the patient's condition and/or to evaluate & treat vital organ system(s) failure or risk of failure. - Medical Decision Making 12/20/19 03:30 84-year-old female with skin tear and underlying expanding hematoma to the left lower leg, mechanism of injury unknown Patient is on Eliquis Plan for CT of the brain as well as CTA of the left lower extremity Pressure dressing applied Patient has no neurovascular compromise on arrival, dorsalis pedis/pretibial pulse located with bedside ultrasound 12/20/19 06:42 CTA of the lower extremity appears to be suboptimal in technique with no flow/contrast noted distal to the popliteal arteries bilaterally Patient continues to ooze at the open wound site, improved and controllable with direct pressure There is no resting pain, pallor pulselessness or paresthesia present at this time to suggest acute compartment syndrome Patient may require surgical exploration and/or reversal and has stated she prefers to be transferred to [facility] Case accepted by Dr. Cortez, orthopedics for ED to ED evaluation Discharge - Discharge Information Problems reviewed: Yes Clinical Impression/Diagnosis: Hematoma, Leg wound, left Condition: Guarded - Follow up/Referral Referrals: Marlena Newman [Primary Care Provider] - - Patient Discharge Instructions - Post Discharge Activity
[2019-12-20 04:08] LABS: BASO % 0.8 % (0-2.0); EOS % 0.1 % (0-4.5); HEMATOCRIT 32.9 % (32.4-45.2); HEMOGLOBIN 10.6 GM/dL (10.7-15.3); LYMPH % 14.5 % (8-40); MCH 28.6 pg (25.7-33.7); MCHC 32.2 g/dl (32.0-36.0); MEAN CELL VOLUME 88.7 fl (80-96); MONO % 33.6 % (3.8-10.2); PLATELET COUNT 169 K/MM3 (134-434); RBC 3.71 M/mm3 (3.60-5.2); RDW 15.7 % (11.6-15.6); WHITE BLOOD COUNT 7.4 K/mm3 (4.0-10.0)
[2019-12-20] MEDS ORDERED: DIPHTH,PERTUSS(ACELL),TET 0.5 ML DISP.SYRIN IM ONE ×3 (04:11→05:37)
[2019-12-20 04:17] LABS: INR 2.04 (0.83-1.09); PROTHROMBIN TIME (PATIENT) 24.2 SEC (9.7-13.0)
[2019-12-20 04:20] LABS: ACTIVATED PTT 34.4 SECONDS (25.2-36.5)
--- NOTE | 2019-12-20 04:34 | PDOC ---
History of Present Illness - General Chief Complaint: Injury Stated Complaint: HEMATOMA Time Seen by Provider: 12/20/19 03:30 History Source: Patient, EMS, Alf Records Exam Limitations: No Limitations - History of Present Illness Initial Comments: 12/20/19 04:30 Ayla Ha is an 84F with PMH HTN, HLD, DM, AFIB on Eliquis, SD s/p CABG, hypothyroidism, BIBA from [facility] for leg wound and expanding hematoma. Per [place] report, patient discovered to have a bruise on her left adame yesterday afternoon, MD at [facility] evaluated and recommended ice. Patient has no recollection of how or where she received the wound, is alert and oriented at baseline, and patient denies fall or head injury. Patient on Eliquis for AFIB, yesterday's dose stopped. As day progressed hematoma rapidly expanded and began to bleed, EMS called to bring to [facility] for evaluation. Patient herself reports pain below left knee, but denies numbness/tingling/weakness to leg. Does not know how she injured herself, but denies LOC or other injuries. Denies CHAPARRO or neck pain. Denies fever, chills, nausea, vomiting, chest pain, SOB, dizziness, abd pain, urinary sx, or diarrhea. Past History - Medical History Allergies/Adverse Reactions: Allergies Allergy/AdvReac Type Severity Reaction Status Date / Time cephalexin monohydrate Allergy Intermediate Swelling Verified 11/22/19 17:58 [From Keflex] Home Medications: Ambulatory Orders Levothyroxine [Synthroid -] 50 mcg PO HS 03/21/12 Apixaban [Eliquis] 5 mg PO BID 09/29/17 Atorvastatin Calcium 10 mg PO HS 09/29/17 Quetiapine Fumarate [Seroquel -] 150 mg PO HS #90 tablet 11/23/19 Lidocaine 5% Patch [Lidoderm -] 1 patch TP DAILY #10 patch 11/24/19 Lidocaine Patch Removal [Lidoderm Patch Removal] 1 each MC DAILY@2200 #10 each 11/24/19 Lisinopril 10 mg PO DAILY #30 tablet 11/25/19 Metoprolol Tartrate [Lopressor] 50 mg PO DAILY 12/20/19 Mirtazapine 7.5 mg PO 12/20/19 Anemia: No Asthma: No Cancer: No Cardiac Disorders: Yes CVA: No COPD: No CHF: No Dementia: No Diabetes: No GI Disorders: No Disorders: No HTN: Yes Hypercholesterolemia: Yes Liver Disease: No Seizures: No Thyroid Disease: Yes - Surgical History Abdominal Surgery: No Appendectomy: No Cardiac Surgery: Yes (BYPASS) Cholecystectomy: No Lung Surgery: No Neurologic Surgery: No Orthopedic Surgery: No - Reproductive History Is Patient Now?: No - Psycho-Social/Smoking History Smoking Status: No Smoking History: Never smoked Have you smoked in the past 12 months: No Number of Cigarettes Smoked Daily: 0 Information on smoking cessation initiated: No - Substance Abuse Hx (Audit-C & DAST Scrn) How often the patient has a drink containing alcohol: Never Score: In Men: 4 or > Positive; In Women: 3 or > Positive: 0 Screen Result (Pos requires Nsg. Audit-10AR): Negative In the last yr the pt used illegal drug/Rx for NonMed reason: No Score: Yes response is considered Positive: 0 Screen Result (Positive result requires Nsg. DAST-10): Negative Review of Systems - Review of Systems Able to Perform ROS?: Yes Constitutional: No: Symptoms Reported HEENTM: No: Symptoms Reported Respiratory: No: Symptoms reported Cardiac (ROS): No: Chest Pain, Irregular Heart Rate, Lightheadedness, Palpitations, Syncope ABD/GI: No: Constipated, Diarrhea, Nausea, Poor Appetite, Poor Fluid Intake, Vomiting : No: Symptoms Reported Musculoskeletal: No: Symptoms Reported Integumentary: Yes: Bruising, Lesions Neurological: No: Symptoms reported Endocrine: No: Symptoms Reported Hematologic/Lymphatic: No: Symptoms Reported All Other Systems: Reviewed and Negative *Physical Exam - Vital Signs Last Vital Signs Temp Pulse Resp BP Pulse Ox 98.3 F 95 H 19 159/98 99 12/20/19 03:22 12/20/19 04:23 12/20/19 04:23 12/20/19 04:23 12/20/19 04:23 - Physical Exam General Appearance: Yes: Nourished, Appropriately Dressed, Thin, Other (in NAD, resting in bed, alert). No: Apparent Distress HEENT: positive: EOMI, BARTOLO, Normal Voice, Symmetrical, Pharynx Normal, Hearing Grossly Normal. negative: Scleral Icterus (R), Scleral Icterus (L), Pharyngeal Erythema, Tonsillar Exudate, Tonsillar Erythema Neck: positive: Trachea midline, Normal Thyroid, Supple. negative: Tender, Lymphadenopathy (R), Lymphadenopathy (L), Tender lateral, Tender midline Respiratory/Chest: positive: Lungs Clear, Normal Breath Sounds. negative: Chest Tender, Respiratory Distress, Accessory Muscle Use, Crackles, Rales, Rhonchi, Stridor, Wheezing Cardiovascular: positive: Regular Rhythm, Tachycardia (104). negative: Murmur Gastrointestinal/Abdominal: positive: Normal Bowel Sounds, Flat, Soft. negative: Tender, Organomegaly, Pulsatile Mass, Protuberent, Distended, Guarding, Rebound, Tenderness, Hernia Musculoskeletal: positive: Normal Inspection. negative: CVA Tenderness, Vertebral Tenderness Extremity: positive: Normal Capillary Refill, Normal Range of Motion, Pelvis Stable, Swelling (LLE), Other (large, hematoma noted to LLE from knee to ankle with swelling 2x RLE, actively bleeding from 1cm wound, skin split along anterior adame, initially pulsatile bleeding, ~20cc blood loss, DP pulse unable to palpate). negative: Normal Inspection, Tender, Pedal Edema, Calf Tenderness Integumentary: positive: Normal Color, Dry, Warm, Swelling, Ecchymosis (LLE). negative: Jaundice Neurologic: positive: it investment/portfolio manager II-XII NML intact, Alert, Normal Mood/Affect, Normal Response, Motor Strength 5/5, Other (moving all extremities spontaneously without sensory or motor deficit). negative: Facial Droop, Sensory Deficit ED Treatment Course - LABORATORY CBC & Chemistry Diagram: 12/20/19 05:20 12/20/19 03:40 - ADDITIONAL ORDERS Additional order review: Laboratory Results 12/20/19 03:40 PT with INR 24.20 H INR 2.04 H PTT (Actin FS) 34.4 12/20/19 03:40 RBC 3.71 MCV 88.7 MCHC 32.2 RDW 15.7 H MPV 11.0 Neutrophils % 51.0 Lymphocytes % 14.5 D Monocytes % 33.6 H Eosinophils % 0.1 D Basophils % 0.8 D - RADIOLOGY Radiology Studies Ordered: Category Date Time Status CERVICAL SPINE CT W/O CONTR [CT] Stat CT Scan 12/20/19 03:[address] WITHOUT CONTRAST [CT] Stat CT Scan 12/20/19 03:36 Taken LOWER EXTREMITY CTA [CT] Stat CT Scan 12/20/19 03:39 Taken CHEST X-RAY PORTABLE* [RAD] Stat Radiology 12/20/19 03:37 Ordered Radiograph Interpretation: THIS IS A PRELIMINARY REPORT FROM IMAGING RADIOSONDE OPERATOR Exam: non contrast CT of the brain Date of service: 2019-12-20 03:53:20 Impression: 1. No definitive evidence of acute intracranial hemorrhage, intracranial mass effect, or depressed calvarial fracture is appreciated. The ventricle sizes are stable but slightly prominent. Please consider involutional changes versus normal pressure hydrocephalus. 2. The visualized portions of the paranasal sinuses are clear. 3. There is white matter disease that is likely the result of chronic ischemic demyelination. 4. There is opacification of a few mastoid air cells bilaterally. Effusion may be the cause. THIS IS A PRELIMINARY REPORT DATE OF SERVICE: 2019-12-20 03:48:43 EXAM: CERVICAL SPINE CT W/O CONTR FINDINGS: Negative for cervical spine fracture or malalignment. Degenerative changes. Extensive vascular calcification. THIS IS A PRELIMINARY REPORT DATE OF SERVICE: 2019-12-20 04:06:31 EXAM: CT angiography of the bilateral lower extremities Images were obtained from knees to the mid forefoot. Left lower extremity: Positive for hematoma of the medial aspect of the medial aspect of the left leg detaining his tissues. The hematoma is approximately 19.9 cm in length by 2.8 cm in its transverse dimension by 7.9 cm in AP dimension. No contrast extravasation is seen within the hematoma on the images. However, this scan is not protocoled to evaluate for active hemorrhage (which would require noncontrast, arterial phase, and portal venous phase imaging). I cannot determine what phase of imaging this is. There is very little contrast in the lower extremity run off vessels. I do not see any contrast in the popliteal artery. I cannot determine if it is occluded or a poor contrast bolus. In order to evaluate for active bleeding, therefore, the hematoma will have to be marked and checked periodically for growth. There is low density within the medial aspect of the hematoma which can be a "soft" sign of active bleeding but this is not certain. Right lower extremity No hematoma of the right lower extremity is seen. I do not see any contrast in the right popliteal artery. I do not see contrast in the runoff vessels except questionably in the peroneal artery. Overall, because of the scan protocol and because of the questionable contrast in the arteries, this is nondiagnostic for active bleeding. If active bleeding is suspected in the h ematoma should be watched carefully. Medical Decision Making - Medical Decision Making 12/20/19 04:47 Patient on Eliquis 2/2 AFIB and presents with expanding hematoma to LLE. On arrival, hematoma is actively bleeding, DP pulse in LLE weak and but seen on bedside US. Wound dressed in pressure dressing. Initial HR 104 with stable BP. 18G placed in R AC and patient brought to CT for emergent CTA LLE for evaluation of vascular compromise to LLE. Ordered CBC/CMP/CP/Coags/BNP/T&Sx2/lactic acid/ECG/CXR/UA/UC for evaluation of blood loss and possible syncope given cardiac history. CT head/c-spine for evaluation of ICH given Eliquis and bleeding and possible unwitnessed fall. 12/20/19 05:32 Pressure dressing bleeding through, replaced. Repeat CBC sent. HR 115, giving 500cc NS and Ofirmev for pain control. Labs notable for: - Hgb 10.6 - INR 2.04 - trop <0.02 - BNP 3085.2 - CMP WNL - Blood type O+ ECG notable for AFIB with RVR with HR 106, QTc 407, no SHIRA/D, TWI in III. 12/20/19 05:39 CT c-spine no acute fracture, extensive vascular calcification, degenerative changes CT head no acute ICH. CTA LE still pending. Imaging received at 04:47. Contacted for expedited read at 05:00. LLE bleeding stopped, HR 100 and in AFIB, hypovolemia vs AFIB with RVR, mentating well, denies symptoms of anemia. 12/20/19 05:57 Repeat Hgb 10.2 down from 10.4, stable 2 hours into ED visit. CTA still pending, contacted Imaging radiology interventional physician for expedited read. 12/20/19 06:[address] Godfrey with Imaging radiology interventional physician, reports patient has no contrast to either popliteal artery suggesting that contrast bolus was insufficient, unable to characterize hematoma or flow to either foot. Patient's dressing changed again. Bleeding controlled with direct pressure. Given concern got continual bleeding and expanding hematoma, concerned for development compartment syndrome. Contacted [facility] for transfer, spoke to orthopedics Dr. Cortez who accepts for ED to ED transfer. Patient consents to transfer. Pending EMS arrival. Discharge - Discharge Information Problems reviewed: Yes Clinical Impression/Diagnosis: Hematoma Leg wound, left Qualifiers: Encounter type: initial encounter Qualified Code(s): S81.802A - Unspecified open wound, left lower leg, initial encounter Condition: Guarded Disposition: TRANSFER ACUTE CARE/OTHER HOSP - Admission No - Follow up/Referral Referrals: Marlena Newman [Primary Care Provider] - - Patient Discharge Instructions - Post Discharge Activity
[2019-12-20 04:36] LABS: ALBUMIN 3.9 g/dl (3.4-5.0); ALK PHOS 162 U/L (45-117); ANION GAP 8 MMOL/L (8-16); BLOOD UREA NITROGEN 14.8 mg/dL (7-18); CALCIUM 9.4 mg/dL (8.5-10.1); CHLORIDE 101 mmol/L (98-107); CO2 27 mmol/L (21-32); CREATININE 0.8 mg/dL (0.55-1.3); GLUCOSE,RANDOM 157 mg/dL (74-106); POTASSIUM 4.5 mmol/L (3.5-5.1); SGOT/AST 23 U/L (15-37); SGPT/ALT 16 U/L (13-61); SODIUM 136 mmol/L (136-145); TOT PROT 7.1 g/dl (6.4-8.2)
[2019-12-20] MEDS ORDERED: ACETAMINOPHEN 1000 MG/100 ML VIAL (NON FORMULARY) IVPB ONE (04:56)
[2019-12-20] MEDS ORDERED: ACETAMINOPHEN INJECTION 100 ML IVPB ONE (05:05)
[2019-12-20] MEDS ORDERED: SODIUM CHLORIDE 0.9% 500 ML INFUS.BAG IV ONE (05:08)
[2019-12-20] MEDS ORDERED: CLINDAMYCIN 600MG PREMIX IVPB 600 MG/50 ML BAG IVPB ONE ×2 (05:23→06:14)
[2019-12-20 05:54] LABS: BASO % 0.7 % (0-2.0); EOS % 0.1 % (0-4.5); HEMATOCRIT 31.9 % (32.4-45.2); HEMOGLOBIN 10.2 GM/dL (10.7-15.3); LYMPH % 14.8 % (8-40); MCH 28.2 pg (25.7-33.7); MCHC 31.9 g/dl (32.0-36.0); MEAN CELL VOLUME 88.5 fl (80-96); MEAN PLT VOLUME 10.7 fl (7.5-11.1); MONO % 33.9 % (3.8-10.2); NEUT % 50.5 % (42.8-82.8); PLATELET COUNT 149 K/MM3 (134-434); RBC 3.61 M/mm3 (3.60-5.2); RDW 15.9 % (11.6-15.6)
[2019-12-20 06:17] LABS: PLATELET ESTIMATE ADEQUATE
[2019-12-20 06:23] LABS: PLATELET ESTIMATE ADEQUATE
[2019-12-20 07:31] VITALS: BP 120/65; PULSE 110; TEMP 98
[2019-12-20 09:03] LABS: URINE APPEARANCE CLEAR; URINE BILIRUBIN NEGATIVE (NEGATIVE); URINE COLOR YELLOW; URINE GLUCOSE (UA) NEGATIVE (NEGATIVE); URINE KETONE NEGATIVE (NEGATIVE)
[2019-12-20 09:04] LABS: EPI CELLS 8.4 /uL (0-25.1); HYALINE CASTS 1.15 /uL (0-3.1); PH,URINE 6.5 (5.0-8.0); URINE LEUK ESTERASE TRACE (NEGATIVE); URINE NITRITE NEGATIVE (NEGATIVE); URINE PROTEIN NEGATIVE (NEGATIVE); URINE RBC 16.1 /uL (0-23.9); URINE UROBILINOGEN 0.2 mg/dL (0.2-1.0); URINE WBC 3.2 /uL (0-25.8)
[2019-12-20 09:05] LABS: URINE BACTERIA 18.1 /uL (0-1359)
--- NOTE | 2019-12-20 09:22 | EKG ---
Test Reason : Blood Pressure : / mmHG Vent. Rate : 106 BPM Atrial Rate : 127 BPM P-R Int : 000 ms QRS Dur : 086 ms QT Int : 354 ms P-R-T Axes : 000 -59 -13 degrees QTc Int : 470 ms ATRIAL FIBRILLATION WITH RAPID VENTRICULAR RESPONSE LEFT AXIS DEVIATION PULMONARY DISEASE PATTERN SEPTAL INFARCT (CITED ON OR BEFORE 22-NOV-2019) ABNORMAL ECG WHEN COMPARED WITH ECG OF 22-NOV-2019 12:59, QUESTIONABLE CHANGE IN INITIAL FORCES OF SEPTAL LEADS T WAVE INVERSION NO LONGER EVIDENT IN ANTEROLATERAL LEADS Confirmed by Jules Smith MD ([id number]) on 12/20/2019 9:22:17 AM Referred By: Confirmed By:Jules Smith MD
== END 2019-12-20 07:31 | disposition short-term general hospital (02) ==
LOC: JER 02:58
PROC: 3E0234Z Introduction of Serum, Toxoid and Vaccine into Muscle, Percutaneous Approach (ICD-10-PCS; principal; 2019-12-20)
PROC: 3E033NZ Introduction of Analgesics, Hypnotics, Sedatives into Peripheral Vein, Percutaneous Approach (ICD-10-PCS; 2019-12-20)
PROC: 3E033GC Introduction of Other Therapeutic Substance into Peripheral Vein, Percutaneous Approach (ICD-10-PCS; 2019-12-20)
DX: S81.802A Unspecified open wound, left lower leg, initial encounter (principal)
CPT/HCPCS: 36415; 70450-TC; 71045-TC-FY; 72125-TC; 73706-TC-RT; 80053; 81003; 82550; 83605; 83735; 83880; 84484; 85025; 85610; 85730; 86850; 86900; 86901; 87086; 90715; 93005; 93010; 99291; 99292; J0131; Q9967; U0003